=== PATIENT | female | born 1940 | race Caucasian/White ===

== ENCOUNTER 2020-08-23 06:21 | Outpatient (REF) | payer MEDICARE, OTHER, SELFPAY ==
[2020-08-23 11:12] LABS: MANUAL DIFF FLAG NO
[2020-08-23 11:26] LABS: Glucose Urine UA NEG (NEG); Leukocyte Esterase Urine NEG (NEG); Nitrite Urine NEG (NEG); Urine Blood TRACE (NEG); Urine Ketones NEG (NEG); Urine Protein TRACE MG/DL (NEG-TRACE)
[2020-08-23 11:27] LABS: Appearance Urine CLEAR; Color Urine YELLOW
[2020-08-23 11:31] LABS: Basophils Absolute Auto 0.1 X10*3/uL (0.0-0.2); Basophils Percent Auto 0.9 % (0-2); Eosinophils Absolute Auto 0.3 X10*3/uL (0.0-0.4); Eosinophils Percent Auto 4.4 % (0-4); Hemoglobin 13.7 g/dl (12.0-16.0); Imm Gran Abs Auto 0.02 X10*3/uL (0.00-0.03); Imm Gran Pct Auto 0.3 % (0.0-0.4); Lymphocytes Absolute Auto 1.7 X10*3/uL (1.2-4.9); Lymphocytes Percent Auto 24.8 % (20-40); Mean Corpuscular HGB Conc 32.6 g/dl (31.0-35.0); Mean Corpuscular Hemoglobin 31.5 pg (27.0-33.0); Mean Corpuscular Volume 96.6 fL (80-98); Mean Platelet Volume 11.1 fL (9.4-12.3); Monocytes Absolute Auto 0.9 X10*3/uL (0.1-1.2); Monocytes Percent Auto 13.3 % (2-11); Neutrophils Absolute Auto 3.8 X10*3/uL (2.0-8.3); Neutrophils Percent Auto 56.3 % (45-73); Platelet Count 265 X10*3/uL (160-400); Red Blood Count 4.35 X10*6/uL (4.20-5.50); White Blood Count 6.8 X10*3/uL (4.8-10.8)
[2020-08-23 11:39] LABS: RBC Urine 0-2 /HPF (0); Squamous Epithelial Cell Urine TRACE /LPF; WBC Urine 0 /HPF (0-4)
[2020-08-23 12:16] LABS: Alanine Aminotransferase 17 U/L (0-31); Albumin Level 4.3 g/dL (3.5-5.0); Alkaline Phosphatase 117 U/L (39-117); Anion Gap 13 (12-20); Aspartate Amino Transferase 25 U/L (5-31); Bilirubin Total 0.6 mg/dL (0.0-1.0); Blood Urea Nitrogen 21 mg/dL (9-16); Calcium 9.6 mg/dL (8.4-10.2); Carbon Dioxide 33 mmol/L (22-29); Chloride 99 mmol/L (96-108); Cholesterol 160 mg/dL; Estimated Glomerular Filt Rate 50; Glucose Fasting 100 mg/dL (60-99); HDL Cholesterol 59 mg/dL; LDL Cholesterol Calculated 86 mg/dl; Potassium 4.7 mmol/l (3.3-5.1); Sodium 140 mmol/L (135-145); Triglycerides 77 mg/dL
[2020-08-23 12:38] LABS: Thyroid Stimulating Hormone 1.94 mIU/mL (0.32-4.0); Vitamin D 25-OH Total 47.7 ng/mL (>30)
== END 2020-08-23 06:22 | disposition home or self-care (01) ==
LOC: HO.HMGCLDS 06:21
PROVIDERS: PCP Internal Medicine; Visit Provider Internal Medicine
DX: I10 Essential (primary) hypertension (principal); E78.00 Pure hypercholesterolemia, unspecified; M81.0 Age-related osteoporosis without current pathological fracture
CPT/HCPCS: 36415; 80053; 80061; 81001; 82306; 84443; 85025

== ENCOUNTER → 2020-09-01 09:17 | Outpatient (REF) | payer MEDICARE, OTHER, SELFPAY ==
--- NOTE | 2020-09-01 09:30 | CA_ITS ---
Transthoracic Echocardiogram Patient (Last, First, Middle): Farnaz Menezes M Gender: Female Date of : 1940 Age: 79 Procedure Date: 09/01/2020 Procedure Type: Transthoracic Echocardiogram Location: OP Height: 160.02 cm Weight: 56.7 kg BSA: 1.58 m2 Heart Rate: bpm BP: 130 / 60 mmHg Head Buyer Tobacco: ODILON Referring MD: Jose Moore MD Symptoms: I42.2 CMP Conclusions: - The left ventricular systolic function is hyperdynamic. The visually estimated ejection fraction is >70%. - LVOT gradient noted-34 mm Hg; mid cavitary gradient- 36 mm Hg; no major changes with Valsalva. - There is mild calcification of the aortic valve. - There is mild anterior and posterior mitral leaflet thickening. There is moderate mitral annular calcification. Findings Left Ventricle Normal left ventricular cavity size. There is normal left ventricular wall thickness. The left ventricular systolic function is hyperdynamic. The visually estimated ejection fraction is >70%. E/E prime ratio is between 8 and 15 consistent with indeterminate filling pressures. Evidence suggests grade I (mild) diastolic dysfunction. LVOT gradient noted-34 mm Hg; mid cavitary gradient- 36 mm Hg; no major changes with Valsalva. Right Ventricle Normal right ventricular cavity size and systolic function. Atria The left atrium is normal in size. The right atrium is normal in size. Aortic Valve There is a normal trileaflet aortic valve. There is mild calcification of the aortic valve. There is no aortic valve stenosis. There is no aortic valve regurgitation. Mitral Valve There is mild anterior and posterior mitral leaflet thickening. There is moderate mitral annular calcification. There is trace mitral valve regurgitation. There is no mitral valve stenosis. Pulmonic Valve The pulmonic valve was not well visualized. Tricuspid Valve Normal tricuspid valve structure. There is mild tricuspid valve regurgitation. The pulmonary artery systolic pressure is normal. Great Vessels The aortic annulus, sinuses of valsalva, and asc aorta are normal in size. Venous The inferior vena cava is normal in size and collapses greater than 50% with inspiration. Pericardium/Pleural There is no evidence of pericardial effusion. Prior Study Comparison No prior study available for comparison. Measurements 2D Linear Measurements IVSd: 0.95 0.6-0.9/0.6-1.0 cm LVIDd: 3.03 3.9-5.3/4.2-5.9 cm LVIDs: 1.94 2.0-3.6 cm LVPWd: 0.65 0.7-1.1 cm LA Diam: 2.50 2.7-3.8/3.0-4.0 cm LV Mass: 73.80 67-162/88-224 g LVOT Diam: 1.80 3.0+(-)1.3 cm Mitral Valve MV VTI: 0.22 MV Pk Jose: 1.55 MV Mn Jose: 0.92 MV Pk Grad: 9.61 MV Mn Grad: 3.83 MV Pk E: 0.71 MV PK A: 1.48 MV Decel Time: 130.20 E/A: 0.48 E'Lateral: 0.06 E'Medial: 0.06 Decel [place]: 5.42 Aortic Valve AoV Pk Jose: 2.10 AoV Pk Grad: 17.57 LVOT LVOT Pk Jose: 1.97 LVOT Mn Jose: 1.35 LVOT VTI: 0.39 LVOT Pk Grad: 15.54 LVOT Mn Grad: 8.42 LVOT Diam: 1.80 LVOT Area: 2.56 Diastolic Function MV Pk E: 0.71 MV Pk A: 1.48 E/A: 0.48 E'Medial: 0.06 E' Laterial: 0.06 Tricuspid Valve TR Pk Jose: 2.75 TR Pk Grad: 30.24 Great Vessels Aorta Ao Asc: 2.32 2.1-3.4 cm Updated in Other Vendor System with Status of Final Chon Stratton MD electronically signed on 09/03/2020 11:11:58 AM with status of Final
== END ==
LOC: HO.CARD 09:17
PROVIDERS: PCP Internal Medicine; Referring Provider Internal Medicine Interventional Cardiology; Visit Provider Internal Medicine
DX: I42.2 Other hypertrophic cardiomyopathy (principal); I42.3 Endomyocardial (eosinophilic) disease
CPT/HCPCS: 93306

== ENCOUNTER 2021-04-23 06:04 | Outpatient (REF) | payer MEDICARE, OTHER, SELFPAY ==
[2021-04-23 08:13] LABS: Alanine Aminotransferase 24 U/L (0-31); Albumin Level 4.2 g/dL (3.5-5.0); Alkaline Phosphatase 123 U/L (39-117); Anion Gap 13 (12-20); Aspartate Amino Transferase 29 U/L (5-31); Bilirubin Total 0.5 mg/dL (0.0-1.0); Blood Urea Nitrogen 27 mg/dL (9-16); Calcium 9.7 mg/dL (8.4-10.2); Carbon Dioxide 30 mmol/L (22-29); Chloride 102 mmol/L (96-108); Cholesterol 154 mg/dL; Estimated Glomerular Filt Rate 54; Gamma Glutamyl Transpeptidase 49 U/L (7-33); Glucose Random 93 mg/dL (60-115); HDL Cholesterol 57 mg/dL; LDL Cholesterol Calculated 80 mg/dl; Potassium 4.8 mmol/L (3.3-5.1); Sodium 140 mmol/L (135-145); Total Protein 6.8 g/dL (6.5-8.0); Triglycerides 88 mg/dL
== END 2021-04-23 06:05 | disposition home or self-care (01) ==
LOC: HO.LAB 06:04
PROVIDERS: PCP Internal Medicine; Visit Provider Internal Medicine
DX: I10 Essential (primary) hypertension (principal); E78.00 Pure hypercholesterolemia, unspecified; R74.8 Abnormal levels of other serum enzymes
CPT/HCPCS: 36415; 80053; 80061; 82977

== ENCOUNTER 2021-06-26 09:07 | Outpatient (REF) | payer MEDICARE, OTHER, SELFPAY ==
--- NOTE | ~2021-06-26 | MM_ITS ---
EXAMINATION: MM SCREENING DIGITAL BREAST TOMOSYNTHESIS, BILATERAL CLINICAL INFORMATION: Screening. Asymptomatic. The lifetime risk of breast cancer based on the Tyrer-Cuzick Model is 2%. COMPARISON: Mammography: 06/20/2020, 06/15/2019, 05/26/2018 TECHNIQUE: Digital breast tomosynthesis is performed in both the craniocaudal and mediolateral oblique views along with computer-aided detection (CAD). Synthesized 2D images are generated from the tomosynthesis. FINDINGS: There are scattered areas of fibroglandular density (ACR BI-RADS breast composition Category b). Fibroglandular parenchymal pattern is similar to prior studies. No significant mass or architectural abnormality or significant change from prior studies. Scattered grouped calcifications central and upper outer left breast are similar to prior studies. The axilla and skin contours are unremarkable. MM/MM tomosynthesis screening BI IMPRESSION: No significant changes from prior studies. ASSESSMENT: BI-RADS 2: Benign RECOMMENDATION: Routine annual mammography screening. This patient's information was entered into a reminder system with a target due date for their next mammogram.
== END 2021-06-26 09:08 | disposition home or self-care (01) ==
LOC: HO.MAMMO 09:07
PROVIDERS: Visit Provider Internal Medicine
DX: Z12.31 Encounter for screening mammogram for malignant neoplasm of breast (principal)
CPT/HCPCS: 77063; 77067

== ENCOUNTER 2021-08-22 06:30 | Outpatient (REF) | payer MEDICARE, OTHER, SELFPAY ==
[2021-08-22 06:36] LABS: MANUAL DIFF FLAG NO
[2021-08-22 07:32] LABS: Basophils Absolute Auto 0.1 X10*3/uL (0.0-0.2); Basophils Percent Auto 0.6 % (0-2); Eosinophils Absolute Auto 0.3 X10*3/uL (0.0-0.4); Eosinophils Percent Auto 4.2 % (0-4); Hematocrit 41.8 % (37-47); Hemoglobin 13.6 g/dl (12.0-16.0); Imm Gran Abs Auto 0.03 X10*3/uL (0.00-0.03); Imm Gran Pct Auto 0.4 % (0.0-0.4); Lymphocytes Absolute Auto 1.4 X10*3/uL (1.2-4.9); Lymphocytes Percent Auto 18.6 % (20-40); Mean Corpuscular HGB Conc 32.5 g/dl (31.0-35.0); Mean Corpuscular Hemoglobin 31.1 pg (27.0-33.0); Mean Corpuscular Volume 95.7 fL (80-98); Mean Platelet Volume 10.9 fL (9.4-12.3); Monocytes Absolute Auto 0.9 X10*3/uL (0.1-1.2); Monocytes Percent Auto 11.6 % (2-11); Neutrophils Percent Auto 64.6 % (45-73); Platelet Count 296 X10*3/uL (160-400); Red Blood Count 4.37 X10*6/uL (4.20-5.50); Red Cell Distribution Width 12.8 % (11.0-16.0); White Blood Count 7.7 X10*3/uL (4.8-10.8)
[2021-08-22 07:49] LABS: Alanine Aminotransferase 18 U/L (0-31); Albumin Level 4.4 g/dL (3.5-5.0); Alkaline Phosphatase 136 U/L (39-117); Anion Gap 10 (12-20); Aspartate Amino Transferase 25 U/L (5-31); Bilirubin Total 0.7 mg/dL (0.0-1.0); Blood Urea Nitrogen 21 mg/dL (9-16); Calcium 9.9 mg/dL (8.4-10.2); Carbon Dioxide 29 mmol/L (22-29); Chloride 102 mmol/L (96-108); Cholesterol 165 mg/dL; Estimated Glomerular Filt Rate 50; Glucose Random 104 mg/dL (60-115); HDL Cholesterol 49 mg/dL; LDL Cholesterol Calculated 92 mg/dl; Potassium 4.1 mmol/L (3.3-5.1); Sodium 137 mmol/L (135-145); Total Protein 7.3 g/dL (6.5-8.0); Triglycerides 124 mg/dL
[2021-08-22 08:07] LABS: Appearance Urine CLEAR; Color Urine YELLOW; Glucose Urine UA NEG (NEG); Leukocyte Esterase Urine NEG (NEG); Nitrite Urine NEG (NEG); PH 6.5 (5.0-8.0); Urine Blood NEG (NEG); Urine Ketones NEG (NEG); Urine Protein NEG (NEG-TRACE)
== END 2021-08-22 06:31 | disposition home or self-care (01) ==
LOC: HO.LAB 06:30
PROVIDERS: PCP Internal Medicine; Visit Provider Internal Medicine
DX: I10 Essential (primary) hypertension (principal); E78.00 Pure hypercholesterolemia, unspecified
CPT/HCPCS: 36415; 80053; 80061; 81003; 85025

== ENCOUNTER 2021-10-03 10:13 | Outpatient (REF) | payer MEDICARE, OTHER, SELFPAY ==
--- NOTE | ~2021-10-03 | MM_ITS ---
EXAMINATION: BONE DENSITOMETRY CLINICAL INDICATION: Osteoporosis. COMPARISON: Previous BD dated 10/01/2019 and baseline BD dated 09/12/2005. TECHNIQUE: Using a HIGH MOBILITY DXA System (software version: 13.1) manufactured by [employer] dual-energy x-ray absorptiometry was performed of the lumbar spine and left hip. The images are of good technical quality. Summary results are attached. FINDINGS: AP SPINE L1-L4: Current: BMD 0.814 g/cm2, Z-score -0.9, T-score -3.0, osteoporosis, 9.7% increase from previous, 2.4% increase from baseline (<5% change is not significant). Prior: BMD 0.742 g/cm2. Baseline: BMD 0.795 g/cm2. LEFT FEMUR, NECK: Current: BMD 0.606 g/cm2, Z-score -0.8, T-score -3.1, osteoporosis. Prior: BMD 0.591 g/cm2. Baseline: BMD 0.688 g/cm2. LEFT FEMUR, TOTAL: Current: BMD 0.598 g/cm2, Z-score -1.1, T-score -3.3, osteoporosis, 1.2% decrease from previous, 14.1% decrease from baseline (<5% change is not significant). Prior: BMD 0.605 g/cm2. Baseline: BMD 0.696 g/cm2. IDENTIFIED RISK FACTORS: Menopause, osteoporosis, tobacco use (current smoker), Thiazide. HISTORY OF FRACTURE: None listed. MEDICATIONS: Calcium, vitamin D, bisphosphonate. MM/XR DEXA axial skeleton IMPRESSION: 1. DIAGNOSIS: Osteoporosis based on the lowest T-score value of -3.3 in the total femur applying World Health Organization criteria. 2. 10-YEAR FRACTURE RISK PREDICTION, FRAX: According to the guidelines, FRAX calculation should only be performed on patients in the osteopenia bone density category. 3. Treatment Recommendations: NOF guidelines recommend consideration for treatment in postmenopausal women and men age 50 and older presenting with the following: -A hip or vertebral (clinical or morphometric) fracture. -T-score less than or equal to -2.5 at the femoral neck or spine after appropriate evaluation to exclude secondary causes. -Low bone mass at the hip or spine and a 10-year fracture probability by FRAX of greater than or equal to 3% for hip fracture or greater than or equal to 20% for major osteoporotic fracture based on the [place] adapted WHO algorithm. 4. Other Recommendations: All treatment decisions require clinical judgment and consideration of individual patient factors, including patient preferences, comorbidities, previous drug use, risk factors not captured in the FRAX model (e.g. frailty, falls, vitamin D deficiency, increased bone turnover, interval significant decline in bone density) and possible under or overestimation of fracture risk by FRAX. Additional medical evaluation for secondary cause of low bone mineral density may be appropriate. FUTURE SCAN RECOMMENDATION: People with diagnosed cases of osteoporosis or at high risk for fracture should have regular bone mineral density tests. For patients eligible for Medicare, routine testing is allowed once every 2 years. The testing frequency can be increased to one year for patients who have rapidly progressing disease, those who are receiving or discontinuing medical therapy to restore bone mass, or have additional risk factors.
== END 2021-10-03 10:14 | disposition home or self-care (01) ==
LOC: HO.MAMMO 10:13
PROVIDERS: PCP Internal Medicine; Visit Provider Internal Medicine Endocrinology, Diabetes & Metabolism
DX: M81.0 Age-related osteoporosis without current pathological fracture (principal); F17.200 Nicotine dependence, unspecified, uncomplicated; Z79.899 Other long term (current) drug therapy; Z78.0 Asymptomatic menopausal state
CPT/HCPCS: 77080

== ENCOUNTER 2021-10-27 10:12 | Emergency (ER) | payer MEDICARE, OTHER, SELFPAY ==
[2021-10-27 10:18] VITALS: BP 192/89; PULSE 79; RESP 19; TEMP 36.6; O2SAT 99; BMI 21.4
--- NOTE | 2021-10-27 11:47 | ED.LOWEXIN ---
HPI - Extremity Injury (Lower) General Chief Complaint: Extremity Injury, Lower Stated Complaint: leg pain Time Seen by Provider: 10/27/21 11:47 Source: patient Mode of arrival: ambulatory History of Present Illness HPI Narrative: 81-year-old female with a past medical history of hyperlipidemia, hypertension, cardiomyopathy presenting to the ED complaining of right buttock pain radiating down right lower extremity x a few days. Reports her sciatic nerve is acting up, admits to similar symptoms in the past. Took Motrin at home with minimal relief. Denies known injury/trauma or fall. Denies numbness, tingling, weakness, urinary incontinence/retention. Related Data Previous Rx's Medication Instructions Recorded acetaminophen 500 mg tablet 500 mg PO Q6H PRN #20 tab 10/27/21 (Tylenol Extra Strength) cyclobenzaprine 5 mg tablet 5 mg PO Q8H PRN 5 Days #14 tab 10/27/21 lidocaine 5 % topical patch 1 patch TOPICAL DAILY PRN #30 ea 10/27/21 (Lidoderm) MDD remove after 12 hours naproxen 500 mg tablet 500 mg PO BID PRN 10 Days #20 tab 10/27/21 Allergies Allergy/AdvReac Type Severity Reaction Status Date / Time No Known Allergies Allergy Unverified 07/27/20 15:10 [No Known Allergies*] Review of Systems Review of Systems: Constitutional: No Fever, No Chills ENT/Mouth: No Ear Pain, No Nasal Congestion, No sore throat, No Rhinorrhea, No Swallowing Difficulty Cardiovascular: No Chest Pain, No SOB Respiratory: No Cough Gastrointestinal: No Nausea, No Vomiting, No Diarrhea, No Constipation, No Abdominal pain Genitourinary:, No Dysuria, No Urinary Incontinence/retention, No Urgency, No Flank Pain Musculoskeletal: +back pain, No Myalgias, No Joint Swelling Skin: No Skin Lesions, No rash Neuro: No Weakness, No Numbness, No Paresthesias Yes all other systems are reviewed and are negative Neurologic: Denies Sensory deficit (Neuro) [facility] Past Medical History Attestation statement: The following information was validated with the patient. Medical History Cardiomyopathy High cholesterol HTN (hypertension) Social History Social History Advance Directives: No Advance Directives Information Provided: Yes Physical Exam Vital Signs: Vital Signs: Last Vital Signs Temp 98 F 10/27/21 10:18 Pulse 79 10/27/21 10:18 Resp 19 10/27/21 10:18 BP 192/89 H 10/27/21 10:18 Pulse Ox 99 10/27/21 10:18 BMI result Body Mass Index 21.4 Const: General: cooperative, healthy appearing and no acute distress Orientation/consciousness: patient oriented x3 Limitations: no limitations HENMT: Head: Yes normal to inspection Ears: hearing grossly normal bilaterally General nose exam: Normal external nose present Face and sinus: Yes normal facial exam Eyes: General: appearance normal, both eyes and all related structures EOM: EOMs intact bilaterally Neck: Other: No midline cervical spinous tenderness Neck: Yes normal visual inspection Resp: Effort & Inspection: normal respiratory effort and no respiratory distress Cardio: Rate: regular rate Peripheral pulses: dorsalis pedis present GI: Inspection: Yes normal to inspection Palpation (GI): Soft to palpation and nontender Back/Spine/Pelvis: Other: No midline thoracic or lumbar spine tenderness/step-off or deformity. + right buttock tenderness to palpation Skin: Rashes: no rashes Wounds: no wounds Neuro: Other: strength intact throughout. No saddle anesthesia. Ambulating with steady gait. General: patient oriented x3, gait normal, tone normal and moves all extremities Gait exam (Neuro): Normal gait present Motor exam (neuro): 5/5 motor strength present throughout Sensory Exam: No Sensory deficit (Neuro) Extrem: General: Yes normal to inspection MDM - Extremity Injury (Lower) MDM Narrative Medical decision making narrative: 81-year-old female with a past medical history of hyperlipidemia, hypertension, cardiomyopathy presenting to the ED complaining of right buttock pain radiating down right lower extremity x a few days. On exam vital signs stable, NAD/well-appearing, physical exam as above, no midline spinous tenderness, no red flag symptoms. Ambulating with steady gait. No saddle anesthesia. Concern for sciatic nerve pain/MSK muscle spasming. Low concern for cauda equina, cord compression or epidural abscess Medical Records Attestation: I reviewed the patient's medical records. Lab Data Attestation: I reviewed the patient's lab results. Discharge Plan Discharge Clinical Impression: Sciatica Qualifiers: Laterality: right Qualified Code(s): M54.31 - Sciatica, right side Patient Disposition: Home, Self-Care Instructions: Sciatica (ED) Additional Instructions: Your pain is likely musculoskeletal Flexeril is a muscle relaxer, take at night as it makes you drowsy, do not drive, drink alcohol, or operate machinery while taking it Naproxen as an anti-inflammatory / pain medication, take with food Lidoderm patches are numbing patches, apply to painful area In addition take Tylenol at home If symptoms persist or worsen, pain becomes unbearable, you developed urinary retention or incontinence, or weakness return to the ED Prescriptions: New acetaminophen [Tylenol Extra Strength] 500 mg tablet 500 mg PO Q6H PRN (Reason: pain or fever) Qty: 20 RF: 0 lidocaine [Lidoderm] 5 % adhesive patch,medicated 1 patch topical DAILY MDD remove after 12 hours PRN (Reason: pain) Qty: 30 RF: 0 naproxen 500 mg tablet 500 mg PO BID PRN (Reason: pain) 10 Days Qty: 20 RF: 0 cyclobenzaprine 5 mg tablet 5 mg PO Q8H PRN (Reason: pain (scale score 7-10)) 5 Days Qty: 14 RF: 0 Referrals: Jose Moore MD [Primary Care Provider] - 1 week (as needed) Interventions: ED Discharge Assessment Last Done: 10/27/21 11:58
== END 2021-10-27 11:59 | disposition home or self-care (01) ==
PROVIDERS: Emergency Provider Emergency Medicine; PCP Internal Medicine
DX: M54.31 Sciatica, right side (principal); I10 Essential (primary) hypertension
CPT/HCPCS: 99283

== ENCOUNTER 2022-03-18 06:03 | Outpatient (REF) | payer MEDICARE, OTHER, SELFPAY ==
[2022-03-18 06:13] LABS: MANUAL DIFF FLAG NO
[2022-03-18 07:18] LABS: Basophils Absolute Auto 0.1 X10*3/uL (0.0-0.2); Basophils Percent Auto 0.6 % (0-2); Eosinophils Absolute Auto 0.4 X10*3/uL (0.0-0.4); Hematocrit 44.5 % (37.0-47.0); Hemoglobin 14.2 g/dl (12.0-16.0); Imm Gran Abs Auto 0.02 X10*3/uL (0.00-0.03); Imm Gran Pct Auto 0.3 % (0.0-0.4); Lymphocytes Absolute Auto 1.9 X10*3/uL (1.2-4.9); Lymphocytes Percent Auto 24.3 % (20-40); Mean Corpuscular HGB Conc 31.9 g/dl (31.0-35.0); Mean Corpuscular Hemoglobin 30.7 pg (27.0-33.0); Mean Corpuscular Volume 96.3 fL (80.0-98.0); Mean Platelet Volume 10.8 fL (9.4-12.3); Monocytes Percent Auto 12.7 % (2-11); Neutrophils Absolute Auto 4.5 x10*3/uL (2.0-8.3); Neutrophils Percent Auto 57.1 % (45-73); Platelet Count 271 X10*3/uL (160-400); Red Blood Count 4.62 X10*6/uL (4.20-5.50); Red Cell Distribution Width 12.3 % (11.0-16.0); White Blood Count 7.8 X10*3/uL (4.8-10.8)
[2022-03-18 07:51] LABS: Alanine Aminotransferase 16 U/L (0-31); Albumin Level 4.3 g/dL (3.5-5.0); Alkaline Phosphatase 123 U/L (39-117); Anion Gap 15 (12-20); Aspartate Amino Transferase 24 U/L (5-31); Bilirubin Total 0.5 mg/dL (0.0-1.0); Blood Urea Nitrogen 26 mg/dL (9-16); Calcium 10.3 mg/dL (8.4-10.2); Carbon Dioxide 29 mmol/L (22-29); Chloride 102 mmol/L (96-108); Cholesterol 177 mg/dL; Estimated Glomerular Filt Rate 48; Glucose Random 107 mg/dL (60-115); HDL Cholesterol 64 mg/dL; LDL Cholesterol Calculated 96 mg/dl; Potassium 4.6 mmol/L (3.3-5.1); Sodium 141 mmol/L (135-145); Total Protein 7.2 g/dL (6.5-8.0); Triglycerides 89 mg/dL
[2022-03-18 08:00] LABS: Thyroid Stimulating Hormone 2.17 uIU/mL (0.32-4.0)
== END 2022-03-18 06:04 | disposition home or self-care (01) ==
LOC: HO.LAB 06:03
PROVIDERS: PCP Internal Medicine; Visit Provider Internal Medicine
DX: E78.00 Pure hypercholesterolemia, unspecified (principal); I10 Essential (primary) hypertension
CPT/HCPCS: 36415; 80053; 80061; 84443; 85025

== ENCOUNTER 2022-04-22 14:43 | Outpatient (REF) | payer MEDICARE, OTHER, SELFPAY ==
[2022-04-22 15:11] LABS: COVID-19 Test Negative (Negative); IDNOW Serial# 08D9AD1C
== END 2022-04-22 14:44 | disposition home or self-care (01) ==
LOC: HO.LAB 14:43
PROVIDERS: Visit Provider Internal Medicine
DX: Z20.822 Contact with and (suspected) exposure to COVID-19 (principal)
CPT/HCPCS: 87635; C9803

== ENCOUNTER 2022-06-27 09:35 | Outpatient (REF) | payer MEDICARE, OTHER, SELFPAY ==
--- NOTE | ~2022-06-27 | MM_ITS ---
EXAMINATION: MM SCREENING DIGITAL BREAST TOMOSYNTHESIS, BILATERAL CLINICAL INFORMATION: Screening. Asymptomatic. The lifetime risk of breast cancer based on the Tyrer-Cuzick Model is 2%. COMPARISON: Mammography: 06/26/2021, 06/20/2020, 06/15/2019 TECHNIQUE: Digital breast tomosynthesis is performed in both the craniocaudal and mediolateral oblique views along with computer-aided detection (CAD). Synthesized 2D images are generated from the tomosynthesis. FINDINGS: There are scattered areas of fibroglandular density (ACR BI-RADS breast composition Category b). There are no significant masses, abnormal calcifications, or other abnormalities. Parenchymal pattern is similar to prior studies. Again, there are scattered coarse grouped calcifications central and upper outer left breast, likely fibroadenomatous change. The axilla and skin contours are unremarkable. No significant changes. MM/MM tomosynthesis screening BI IMPRESSION: No mammographic evidence of malignancy. ASSESSMENT: BI-RADS 2: Benign RECOMMENDATION: Routine annual mammography screening. This patient's information was entered into a reminder system with a target due date for their next mammogram.
== END 2022-06-27 09:36 | disposition home or self-care (01) ==
LOC: HO.MAMMO 09:35
PROVIDERS: PCP Internal Medicine; Visit Provider Internal Medicine
DX: Z12.31 Encounter for screening mammogram for malignant neoplasm of breast (principal)
CPT/HCPCS: 77063; 77067

== ENCOUNTER 2022-09-04 06:51 | Outpatient (REF) | payer MEDICARE, OTHER, SELFPAY ==
[2022-09-04 07:49] LABS: Estimated Average Glucose 114 mg/dL; Hemoglobin A1c % 5.6 %
[2022-09-04 08:12] LABS: Alanine Aminotransferase 12 U/L (0-31); Albumin Level 4.2 g/dL (3.5-5.0); Alkaline Phosphatase 123 U/L (39-117); Anion Gap 16 (12-20); Aspartate Amino Transferase 20 U/L (5-31); Bilirubin Total 0.5 mg/dL (0.0-1.0); Blood Urea Nitrogen 25 mg/dL (9-16); Carbon Dioxide 28 mmol/L (22-29); Chloride 102 mmol/L (96-108); Estimated Glomerular Filt Rate 49; Glucose Random 102 mg/dL (60-115); Magnesium 2.3 mg/dL (1.6-2.6); Potassium 4.6 mmol/L (3.3-5.1); Sodium 141 mmol/L (135-145); Total Protein 7.1 g/dL (6.5-8.0)
== END 2022-09-04 06:52 | disposition home or self-care (01) ==
LOC: HO.LAB 06:51
PROVIDERS: PCP Internal Medicine; Visit Provider Internal Medicine
DX: I10 Essential (primary) hypertension (principal); M81.0 Age-related osteoporosis without current pathological fracture; R73.01 Impaired fasting glucose
CPT/HCPCS: 36415; 80053; 82306; 83036; 83735

== ENCOUNTER 2023-03-05 06:19 | Outpatient (REF) | payer MEDICARE, OTHER, SELFPAY ==
[2023-03-05 06:33] LABS: MANUAL DIFF FLAG NO
[2023-03-05 07:19] LABS: Basophils Absolute Auto 0.1 X10*3/uL (0.0-0.2); Basophils Percent Auto 0.8 % (0-2); Eosinophils Absolute Auto 0.3 X10*3/uL (0.0-0.4); Eosinophils Percent Auto 4.4 % (0-4); Hematocrit 43.8 % (37.0-47.0); Imm Gran Abs Auto 0.02 X10*3/uL (0.00-0.03); Imm Gran Pct Auto 0.3 % (0.0-0.4); Lymphocytes Absolute Auto 2.1 X10*3/uL (1.2-4.9); Lymphocytes Percent Auto 27.6 % (20-40); Mean Corpuscular Hemoglobin 30.8 pg (27.0-33.0); Mean Corpuscular Volume 96.5 fL (80.0-98.0); Mean Platelet Volume 11.1 fL (9.4-12.3); Monocytes Absolute Auto 0.9 X10*3/uL (0.1-1.2); Monocytes Percent Auto 11.8 % (2-11); Neutrophils Absolute Auto 4.2 x10*3/uL (2.0-8.3); Neutrophils Percent Auto 55.1 % (45-73); Platelet Count 258 X10*3/uL (160-400); Red Blood Count 4.54 X10*6/uL (4.20-5.50); Red Cell Distribution Width 12.8 % (11.0-16.0); White Blood Count 7.7 X10*3/uL (4.8-10.8)
[2023-03-05 07:48] LABS: Alanine Aminotransferase 19 U/L (0-31); Albumin Level 4.3 g/dL (3.5-5.0); Alkaline Phosphatase 121 U/L (39-117); Anion Gap 14 (12-20); Aspartate Amino Transferase 24 U/L (5-31); Bilirubin Total 0.5 mg/dL (0.0-1.0); Blood Urea Nitrogen 26 mg/dL (9-16); Calcium 10.1 mg/dL (8.4-10.2); Carbon Dioxide 29 mmol/L (22-29); Chloride 103 mmol/L (96-108); Cholesterol 170 mg/dL; Estimated Glomerular Filt Rate 40; Glucose Random 105 mg/dL (60-115); HDL Cholesterol 55 mg/dL; LDL Cholesterol Calculated 98 mg/dl; Potassium 4.7 mmol/L (3.3-5.1); Sodium 141 mmol/L (135-145); Total Protein 6.9 g/dL (6.5-8.0); Triglycerides 87 mg/dL
[2023-03-05 08:04] LABS: Thyroid Stimulating Hormone 1.81 uIU/mL (0.32-4.0); Vitamin D 25-OH Total 53.2 ng/mL (>30)
[2023-03-05 08:33] LABS: Appearance Urine Clear; Color Urine Yellow; Glucose Urine UA Negative (Negative); Leukocyte Esterase Urine Small (1+) (Negative); Nitrite Urine Negative (Negative); PH 6.5 (5.0-9.0); UMIC TRIGGER UA YES; Urine Blood Negative (Negative); Urine Ketones Negative (Negative); Urine Protein Negative (Neg-Trace)
[2023-03-05 08:38] LABS: Bacteria Urine None Seen (None Seen); Hyaline Casts Urine 0-2 /LPF (0-2); RBC Urine 0-2 /HPF (0-2); Squamous Epithelial Cell Urine 0-2 /HPF (0-2)
== END 2023-03-05 06:20 | disposition home or self-care (01) ==
LOC: HO.LAB 06:19
PROVIDERS: PCP Internal Medicine; Visit Provider Internal Medicine
DX: I10 Essential (primary) hypertension (principal); E78.00 Pure hypercholesterolemia, unspecified; M81.0 Age-related osteoporosis without current pathological fracture
CPT/HCPCS: 36415; 80053; 80061; 81001; 82306; 84443; 85025

== ENCOUNTER 2023-04-16 06:01 | Outpatient (REF) | payer MEDICARE, OTHER, SELFPAY ==
[2023-04-16 07:19] LABS: Anion Gap 12 (12-20); Blood Urea Nitrogen 22 mg/dL (9-16); Calcium 10.1 mg/dL (8.4-10.2); Carbon Dioxide 30 mmol/L (22-29); Chloride 104 mmol/L (96-108); Estimated Glomerular Filt Rate 51; Glucose Random 107 mg/dL (60-115); Potassium 4.1 mmol/L (3.3-5.1); Sodium 142 mmol/L (135-145)
== END 2023-04-16 06:02 | disposition home or self-care (01) ==
LOC: HO.LAB 06:01
PROVIDERS: PCP Internal Medicine; Visit Provider Internal Medicine
DX: I10 Essential (primary) hypertension (principal)
CPT/HCPCS: 36415; 80048

== ENCOUNTER 2023-09-09 06:38 | Outpatient (REF) | payer MEDICARE, OTHER, SELFPAY ==
[2023-09-09 06:54] LABS: MANUAL DIFF FLAG NO
[2023-09-09 07:31] LABS: Basophils Absolute Auto 0.1 X10*3/uL (0.0-0.2); Basophils Percent Auto 0.9 % (0-2); Eosinophils Absolute Auto 0.4 X10*3/uL (0.0-0.4); Eosinophils Percent Auto 5.3 % (0-4); Hematocrit 42.3 % (37.0-47.0); Hemoglobin 13.9 g/dl (12.0-16.0); Imm Gran Abs Auto 0.02 X10*3/uL (0.00-0.03); Imm Gran Pct Auto 0.3 % (0.0-0.4); Lymphocytes Absolute Auto 1.7 X10*3/uL (1.2-4.9); Lymphocytes Percent Auto 24.4 % (20-40); Mean Corpuscular HGB Conc 32.9 g/dl (31.0-35.0); Mean Corpuscular Volume 94.4 fL (80.0-98.0); Mean Platelet Volume 10.6 fL (9.4-12.3); Monocytes Absolute Auto 0.8 X10*3/uL (0.1-1.2); Monocytes Percent Auto 11.8 % (2-11); Neutrophils Absolute Auto 3.9 x10*3/uL (2.0-8.3); Neutrophils Percent Auto 57.3 % (45-73); Platelet Count 249 X10*3/uL (160-400); Red Blood Count 4.48 X10*6/uL (4.20-5.50); Red Cell Distribution Width 13.1 % (11.0-16.0); White Blood Count 6.9 X10*3/uL (4.8-10.8)
[2023-09-09 07:47] LABS: Estimated Average Glucose 111 mg/dL; Hemoglobin A1c % 5.5 % (<6.0)
[2023-09-09 08:17] LABS: Alanine Aminotransferase 15 U/L (0-31); Albumin Level 4.3 g/dL (3.5-5.0); Alkaline Phosphatase 105 U/L (39-117); Anion Gap 15 (12-20); Aspartate Amino Transferase 24 U/L (5-31); Bilirubin Total 0.6 mg/dL (0.0-1.0); Blood Urea Nitrogen 26 mg/dL (9-16); Calcium 10.4 mg/dL (8.4-10.2); Carbon Dioxide 28 mmol/L (22-29); Chloride 103 mmol/L (96-108); Estimated Glomerular Filt Rate 51; Glucose Random 100 mg/dL (60-115); Potassium 4.4 mmol/L (3.3-5.1); Sodium 142 mmol/L (135-145); Total Protein 7.4 g/dL (6.5-8.0)
[2023-09-09 08:23] LABS: Vitamin D 25-OH Total 53.7 ng/mL (>30)
== END 2023-09-09 06:39 | disposition home or self-care (01) ==
LOC: HO.LAB 06:38
PROVIDERS: PCP Internal Medicine; Visit Provider Internal Medicine
DX: M81.0 Age-related osteoporosis without current pathological fracture (principal); I10 Essential (primary) hypertension; R73.01 Impaired fasting glucose
CPT/HCPCS: 36415; 80053; 82306; 83036; 83735; 85025

== ENCOUNTER 2023-10-09 09:33 | Outpatient (REF) | payer MEDICARE, OTHER, SELFPAY ==
--- NOTE | ~2023-10-09 | MM_ITS ---
EXAMINATION: BONE DENSITOMETRY CLINICAL INDICATION: Osteoporosis. COMPARISON: Previous BD dated 10/03/2021 and baseline BD dated 09/12/2005. TECHNIQUE: Using a [employer] DXA System (software version: 13.1) manufactured by [employer], dual-energy x-ray absorptiometry was performed of the lumbar spine and left hip. The images are of good technical quality. Summary results are attached. FINDINGS: LEFT FEMUR, NECK: Current: BMD 0.660 g/cm2, Z-score -0.4, T-score -2.7, osteoporosis. Prior: BMD 0.606 g/cm2. Baseline: BMD 0.688 g/cm2. LEFT FEMUR, TOTAL: Current: BMD 0.653 g/cm2, Z-score -0.6, T-score -2.8, osteoporosis, 9.2% increase from previous, 6.2% decrease from baseline (<5% change is not significant). Prior: BMD 0.598 g/cm2. Baseline: BMD 0.696 g/cm2. AP SPINE L1-L4: Current: BMD 0.810 g/cm2, Z-score -1.0, T-score -3.1, osteoporosis, 0.5% decrease from previous, 1.9% increase from baseline (<5% change is not significant). Prior: BMD 0.814 g/cm2. Baseline: BMD 0.795 g/cm2. IDENTIFIED RISK FACTORS: Menopause, osteoporosis, thiazide, tobacco use (current smoker). HISTORY OF FRACTURE: None listed. MEDICATIONS: Calcium, vitamin D, bisphosphonate. MM/XR DEXA axial skeleton IMPRESSION: 1. DIAGNOSIS: Osteoporosis based on the lowest T-score value of -3.1 in the lumbar spine applying World Health Organization criteria. 2. 10-YEAR FRACTURE RISK PREDICTION, FRAX: According to the guidelines, FRAX calculation should only be performed on patients in the osteopenia bone density category. Therefore, FRAX was not performed on this patient. 3. Treatment Recommendations: NOF guidelines recommend consideration for treatment in postmenopausal women and men age 50 and older presenting with the following: -A hip or vertebral (clinical or morphometric) fracture. -T-score less than or equal to -2.5 at the femoral neck or spine after appropriate evaluation to exclude secondary causes. -Low bone mass at the hip or spine and a 10-year fracture probability by FRAX of greater than or equal to 3% for hip fracture or greater than or equal to 20% for major osteoporotic fracture based on the [place] adapted WHO algorithm. 4. Other Recommendations: All treatment decisions require clinical judgment and consideration of individual patient factors, including patient preferences, comorbidities, previous drug use, risk factors not captured in the FRAX model (e.g. frailty, falls, vitamin D deficiency, increased bone turnover, interval significant decline in bone density) and possible under or overestimation of fracture risk by FRAX. Additional medical evaluation for secondary cause of low bone mineral density may be appropriate. FUTURE SCAN RECOMMENDATION: People with diagnosed cases of osteoporosis or at high risk for fracture should have regular bone mineral density tests. For patients eligible for Medicare, routine testing is allowed once every 2 years. The testing frequency can be increased to one year for patients who have rapidly progressing disease, those who are receiving or discontinuing medical therapy to restore bone mass, or have additional risk factors.
== END 2023-10-09 09:34 | disposition home or self-care (01) ==
LOC: HO.MAMMO 09:33
PROVIDERS: PCP Internal Medicine; Visit Provider Obstetrics & Gynecology
DX: Z13.820 Encounter for screening for osteoporosis (principal); M81.0 Age-related osteoporosis without current pathological fracture; Z78.0 Asymptomatic menopausal state
CPT/HCPCS: 77080

== ENCOUNTER 2024-03-04 06:13 | Outpatient (REF) | payer MEDICARE, OTHER, SELFPAY ==
[2024-03-04 06:27] LABS: MANUAL DIFF FLAG NO
[2024-03-04 07:59] LABS: Basophils Absolute Auto 0.1 X10*3/uL (0.0-0.2); Basophils Percent Auto 0.8 % (0-2); Eosinophils Absolute Auto 0.3 X10*3/uL (0.0-0.4); Eosinophils Percent Auto 3.6 % (0-4); Hematocrit 42.7 % (37.0-47.0); Hemoglobin 13.8 g/dl (12.0-16.0); Imm Gran Abs Auto 0.02 X10*3/uL (0.00-0.03); Imm Gran Pct Auto 0.3 % (0.0-0.4); Lymphocytes Absolute Auto 1.8 X10*3/uL (1.2-4.9); Lymphocytes Percent Auto 25.1 % (20-40); Mean Corpuscular HGB Conc 32.3 g/dl (31.0-35.0); Mean Corpuscular Hemoglobin 31.4 pg (27.0-33.0); Mean Platelet Volume 11.2 fL (9.4-12.3); Monocytes Absolute Auto 0.9 X10*3/uL (0.1-1.2); Monocytes Percent Auto 12.4 % (2-11); Neutrophils Absolute Auto 4.1 x10*3/uL (2.0-8.3); Neutrophils Percent Auto 57.8 % (45-73); Platelet Count 275 X10*3/uL (160-400); Red Cell Distribution Width 12.3 % (11.0-16.0); White Blood Count 7.2 X10*3/uL (4.8-10.8)
[2024-03-04 08:06] LABS: Estimated Average Glucose 114 mg/dL; Hemoglobin A1c % 5.6 % (<6.0)
[2024-03-04 08:36] LABS: Alanine Aminotransferase 13 U/L (0-31); Albumin Level 4.2 g/dL (3.5-5.0); Alkaline Phosphatase 120 U/L (39-117); Anion Gap 14 (12-20); Aspartate Amino Transferase 23 U/L (5-31); Bilirubin Total 0.6 mg/dL (0.0-1.0); Blood Urea Nitrogen 24 mg/dL (9-16); Calcium 10.1 mg/dL (8.4-10.2); Carbon Dioxide 29 mmol/L (22-29); Chloride 102 mmol/L (96-108); Cholesterol 153 mg/dL (<200); Estimated Glomerular Filt Rate 55; Glucose Random 106 mg/dL (60-115); HDL Cholesterol 55 mg/dL (>40); LDL Cholesterol Calculated 78 mg/dL (<100); Potassium 3.7 mmol/L (3.3-5.1); Sodium 141 mmol/L (135-145); Total Protein 7.5 g/dL (6.5-8.0); Triglycerides 104 mg/dL (<150)
[2024-03-04 08:57] LABS: TSH reflex Free T4 1.88 uIU/mL (0.32-4.0)
== END 2024-03-04 06:14 | disposition home or self-care (01) ==
LOC: HO.LAB 06:13
PROVIDERS: PCP Internal Medicine; Visit Provider Internal Medicine
DX: E78.00 Pure hypercholesterolemia, unspecified (principal); R73.01 Impaired fasting glucose; I10 Essential (primary) hypertension
CPT/HCPCS: 36415; 80053; 80061; 83036; 84443; 85025

== ENCOUNTER 2024-09-15 06:10 | Outpatient (REF) | payer MEDICARE, OTHER, SELFPAY ==
[2024-09-15 06:31] LABS: MANUAL DIFF FLAG NO
[2024-09-15 07:50] LABS: Basophils Absolute Auto 0.1 X10*3/uL (0.0-0.2); Basophils Percent Auto 0.8 % (0-2); Eosinophils Absolute Auto 0.3 X10*3/uL (0.0-0.4); Eosinophils Percent Auto 5.1 % (0-4); Hematocrit 42.3 % (37.0-47.0); Hemoglobin 13.6 g/dl (12.0-16.0); Imm Gran Abs Auto 0.01 X10*3/uL (0.00-0.03); Imm Gran Pct Auto 0.2 % (0.0-0.4); Lymphocytes Absolute Auto 1.4 X10*3/uL (1.2-4.9); Lymphocytes Percent Auto 22.3 % (20-40); Mean Corpuscular HGB Conc 32.2 g/dl (31.0-35.0); Mean Corpuscular Hemoglobin 31.1 pg (27.0-33.0); Mean Corpuscular Volume 96.6 fL (80.0-98.0); Mean Platelet Volume 11.2 fL (9.4-12.3); Monocytes Absolute Auto 0.8 X10*3/uL (0.1-1.2); Monocytes Percent Auto 12.8 % (2-11); Neutrophils Absolute Auto 3.6 x10*3/uL (2.0-8.3); Neutrophils Percent Auto 58.8 % (45-73); Platelet Count 240 X10*3/uL (160-400); Red Blood Count 4.38 X10*6/uL (4.20-5.50); Red Cell Distribution Width 12.6 % (11.0-16.0); White Blood Count 6.1 X10*3/uL (4.8-10.8)
[2024-09-15 08:22] LABS: Alanine Aminotransferase 17 U/L (0-31); Albumin Level 4.1 g/dL (3.5-5.0); Alkaline Phosphatase 107 U/L (39-117); Anion Gap 16 (12-20); Aspartate Amino Transferase 28 U/L (5-31); Bilirubin Total 0.5 mg/dL (0.0-1.0); Blood Urea Nitrogen 30 mg/dL (9-16); Calcium 10.4 mg/dL (8.4-10.2); Carbon Dioxide 27 mmol/L (22-29); Chloride 104 mmol/L (96-108); Estimated Glomerular Filt Rate 44; Glucose Random 112 mg/dL (60-115); Potassium 4.5 mmol/L (3.3-5.1); Sodium 142 mmol/L (135-145); Total Protein 7.2 g/dL (6.5-8.0)
[2024-09-15 08:36] LABS: Vitamin B12 306 pg/mL (200-900)
[2024-09-15 08:39] LABS: Vitamin D 25-OH Total 45.9 ng/mL (>30)
== END 2024-09-15 06:11 | disposition home or self-care (01) ==
LOC: HO.LAB 06:10
PROVIDERS: PCP Internal Medicine; Visit Provider Internal Medicine
DX: I10 Essential (primary) hypertension (principal); R41.3 Other amnesia; M81.0 Age-related osteoporosis without current pathological fracture
CPT/HCPCS: 36415; 80053; 82306; 82607; 85025

== ENCOUNTER 2025-01-22 08:26 | Emergency (ER) | payer MEDICARE, OTHER, SELFPAY ==
[2025-01-22 09:07] VITALS: BP 171/54; PULSE 73; RESP 18; TEMP 36.7; O2SAT 98; BMI 20.7
--- NOTE | 2025-01-22 10:35 | ED_ITS ---
HPI - Skin/Abscess/Foreign Bdy General Chief complaint: Skin/Abscess/Foreign Body Stated complaint: l great toe infection Time Seen by Provider: 01/22/25 10:08 Source: patient and RN notes reviewed Mode of arrival: ambulatory Limitations: no limitations History of Present Illness ED Provider: Elizabeth Kothari PA-C HPI narrative: This is a 84-year-old female, with a history of hypertension, hyperlipidemia, and cardiomyopathy, who presents emergency department with complaints of right great toe pain x 3 days. Patient reports that she had a pedicure on Friday and believes that the manicurist had cut a piece of her skin. She states that later on that night she developed pain and redness. She has been taking Tylenol for her symptoms. No fevers or chills. No history of gout. Unsure when her last tetanus shot was. No other complaints or concerns at this time. MD complaint: laceration Tetanus up to date: unsure Severity: moderate Quality: aching Pain Consistency: constant Relieving factors: none Exacerbating factors: palpation Context: none Associated symptoms: denies other symptoms Treatments prior to arrival: none Related Data Previous Rx's ?Medication ?Instructions ?Recorded acetaminophen 500 mg tablet 500 mg PO Q6H PRN pain or fever 10/27/21 (Tylenol Extra Strength) #20 tabs cyclobenzaprine 5 mg tablet 5 mg PO Q8H PRN pain (scale score 10/27/21 7-10) 5 days #14 tabs lidocaine 5 % topical patch 1 patch topical DAILY PRN pain #30 10/27/21 (Lidoderm) ea naproxen 500 mg tablet 500 mg PO BID PRN pain 10 days #20 10/27/21 tabs cephalexin 500 mg capsule 500 mg PO QID 5 days #20 caps 01/22/25 doxycycline hyclate 100 mg capsule 100 mg PO BID 5 days #10 caps 01/22/25 Allergies Allergy/AdvReac Type Severity Reaction Status Date / Time No Known Allergies Allergy Verified 01/22/25 09:09 [No Known Allergies*] Review of Systems 2 Review of Systems: Yes all other systems are reviewed and are negative Constitutional: Constitutional: Reports as per HPI [facility] Past Medical History Medical History Cardiomyopathy High cholesterol HTN (hypertension) Social History Social History Smoked in Last 30 Days: Yes Use of substances other than those prescribed or required for medical reasons: No Advance Directives: No Advance Directives Information Provided: No Physical Exam 2 Vital Signs: Vital Signs: Last Vital Signs Temp 98.0 F 01/22/25 10:52 Pulse 73 01/22/25 10:52 Resp 18 01/22/25 10:52 BP 171/54 H 01/22/25 10:52 Pulse Ox 98 01/22/25 10:52 O2 Del Method Room Air 01/22/25 10:52 BMI result Body Mass Index 20.7 Const: General: cooperative, comfortable and no acute distress O rientation/consciousness: patient oriented x3 Limitations: no limitations HEENT: Head: Yes normal to inspection, Yes normocephalic and Yes atraumatic Ears: hearing grossly normal bilaterally General nose exam: Normal external nose present Face and sinus: Yes normal facial exam Mouth: Normal oral and palatal mucosa present, oropharynx normal and moist mucous membranes Throat: Yes posterior oropharynx normal Eyes: General: appearance normal, both eyes and all related structures E yelids: Yes eyelids normal Conjunctivae: conjunctivae normal Sclerae: s clerae normal Pupils: Equal, round and reactive pupils present EOM: EOMs intact bilaterally Neck: Neck: Yes normal visual inspection and Yes full ROM Chest: Chest palpation & inspection: normal inspection of the chest Resp: Effort & Inspection: normal respiratory effort and able to speak in complete sentences Auscultation: rales Cardio: Rate: regular rate Rhythm: regular rhythm Heart sounds: S1 normal heart sound present and S2 normal heart sound present GI: Inspection: Yes normal to inspection Skin: Other: Right great toe is erythematous and edematous, with tender to palpation, there is a slight superficial abrasion noted at the left lateral nail bed, no drainage noted. Strong DP pulse. Cap refill less than 2 seconds. Neuro: General: patient oriented x3 and moves all extremities Cranial nerves: Yes Equal, round and reactive pupils present Extrem: General: Yes normal to inspection Right upper extremity: normal to inspection Left upper extremity: normal to inspection Right lower extremity: normal to inspection Left lower extremity: normal to inspection Medications Administered Discontinued Medications Generic Name Dose Route Start Last Admin Trade Name Freq PRN Reason Stop Dose Admin Diphtheria/Tetanus/Acell Pertussis 0.5 ml 01/22/25 10:38 01/22/25 10:49 Diphth,Pertus(Acell),Tet Adult 0.5 Ml Syringe IM 01/22/25 10:39 0.5 ml .ONCE ONE Administration Medical Decision Making Medical Decision Making [facility] Narrative: This is a 84-year-old female, with a history of hypertension, hyperlipidemia, and cardiomyopathy, who presents emergency department with complaints of right great toe pain x 3 days. on arrival, blood pressure mildly elevated 171/54. She was asymptomatic, denies any chest pain, shortness for breath, dizziness or lightheadedness. Patient has right great toe erythema and tenderness. No history of gout. differential diagnoses include gouty arthritis, cellulitis, abscess, paronychia. Unsure of tetanus status therefore tetanus was updated. Given pedicure likely introducing bacteria, will cover as a skin infection with Keflex and doxycycline. Given strict return precautions. She understands and agrees plan. Patient stable for discharge Differential Diagnosis Differential Diagnoses: The differential diagnosis associated with the presentation includes see above Discharge Plan Discharge Clinical Impression: Cellulitis Patient Disposition: Home, Self-Care Instructions: Cellulitis (ED) Additional Instructions: You were seen in the emergency department due to right great toe pain. You have the start of a skin infection. Please take prescribed antibiotics as directed. finish the entire course even if your symptoms improve. Soak your toe in warm soapy water. Do this multiple times per day. We updated your tetanus shot in the department today. Please update your records. Watch for any new or worsening symptoms including but not limited to increased redness, swelling, pain. If any of these occur, please seek emergent care. Prescriptions: New cephalexin 500 mg capsule 500 mg PO QID 5 Days Qty: 20 0RF doxycycline hyclate 100 mg capsule 100 mg PO BID 5 Days Qty: 10 0RF No Action acetaminophen [Tylenol Extra Strength] 500 mg tablet 500 mg PO Q6H PRN (Reason: pain or fever) Qty: 20 0RF lidocaine [Lidoderm] 5 % adhesive patch,medicated 1 patch topical DAILY MDD remove after 12 hours PRN (Reason: pain) Qty: 30 0RF Rx Instructions: leave on most painful area for up to 12 hrs naproxen 500 mg tablet 500 mg PO BID PRN (Reason: pain) 10 Days Qty: 20 0RF cyclobenzaprine 5 mg tablet 5 mg PO Q8H PRN (Reason: pain (scale score 7-10)) 5 Days Qty: 14 0RF Interventions: ED Discharge Assessment Last Done: 01/22/25 10:52 Discharge Date/Time: 01/22/25 11:00 Print Language: Slovenian
[2025-01-22] MEDS: Diphth,Pertus(ACell),Tet Adult 0.5 ML SYRINGE IM (10:49)
[2025-01-22 10:52] VITALS: BP 171/54; PULSE 73; RESP 18; TEMP 36.7; O2SAT 98
== END 2025-01-22 11:00 | disposition home or self-care (01) ==
PROVIDERS: Emergency Provider Emergency Medicine; PCP Internal Medicine
DX: L03.031 Cellulitis of right toe (principal); S90.411A Abrasion, right great toe, initial encounter; X58.XXXA Exposure to other specified factors, initial encounter; M79.674 Pain in right toe(s); I10 Essential (primary) hypertension; E78.5 Hyperlipidemia, unspecified; Z79.899 Other long term (current) drug therapy; Z23 Encounter for immunization; Y93.89 Activity, other specified; Y92.59 Other trade areas as the place of occurrence of the external cause; Y99.9 Unspecified external cause status
CPT/HCPCS: 90471; 90715; 99284

== ENCOUNTER 2025-02-11 06:34 | Outpatient (REF) | payer MEDICARE, OTHER, SELFPAY ==
--- OUTSIDE RECORDS SUMMARY | 2025-02-11 06:37 | XMS_ITS | Continuity of Care Document ---
Author Organization [facility] Address [address] [place] [id number] Care Team Providers Care Undertaker Helper Name Role Phone Jose Moore MD Primary Care Physician [phone] [place] [facility] [place] 02/06/25 [facility] [address] [place] [id number] Encounter Type: Triage Allergies, Adverse Reactions, Alerts No Known Allergies Immunizations Given and Recorded Vaccine Date Status Refusal Reason SARS-CoV-2 (COVID-19) mRNA BNT-162b2 vac 01/14/21 Given SARS-CoV-2 (COVID-19) mRNA BNT-162b2 vac 12/24/20 Given Medications alendronate 70 mg oral tablet 1 tablet = 70 mg, By Mouth, Every week, # 4 tablet, 0 Refills, Maintenance, 02/19/21 2:06:00 PM EDT,Tablet, Partial fill upon patient request if the prescription is for a schedule II opioid drug. Start Date: 02/19/21 Status: Ordered Quantity: 4.0 Unit: tablet Repeat number: 1 atorvastatin 10 mg oral tablet 1 tablet = 10 mg, By Mouth, Daily, # 30 tablet, 0 Refills, Maintenance, 02/23/20 10:04:00 AM EDT Start Date: 02/23/20 Status: Ordered Quantity: 30.0 Unit: tablet Repeat number: 1 Citracal Maximum + D oral tablet 1 tablet, By Mouth, 2 times a day, # 60 tablet, 0 Refills, Maintenance, 02/19/21 2:06:00 PM EDT, Tablet, Partial fill upon patient request if the prescription is for a schedule II opioid drug. Start Date: 02/19/21 Status: Ordered Quantity: 60.0 Unit: tablet Repeat number: 1 Cyclobenzaprine By Mouth, 0 Refills, Maintenance, 11/05/21 12:48:00 PM EST, Partial fill upon patient request if the prescription is for a schedule II opioid drug. Start Date: 11/05/21 Status: Ordered Repeat number: 1 hydrochlorothiazide 25 mg oral tablet 1, tablet, By Mouth, Daily, # 90 tablet, Refills 3, Tot. Refills 3, Maintenance, 01/07/25 2:50:00 PMEST, Route to Pharmacy Electronically, [facility]/pharmacy #[id number], 157, cm, 11/11/24 8:53:00 EST, Height, 54.7, kg, 11/11/24 8:53:00 EST, Dry Weight Start Date: 01/07/25 Status: Ordered Quantity: 90.0 Unit: tablet Repeat number: 4 ICaps with Lutein and Zeaxan By Mouth, Daily, 0 Refills, Maintenance, 02/25/22 11:22:00 AM EDT, Partial fill upon patient requestif the prescription is for a schedule II opioid drug. Start Date: 02/25/22 Status: Ordered Repeat number: 1 irbesartan 150 mg oral tablet 1 tablet, By Mouth, Daily, # 90 tablet, 0 Refills, Maintenance, 12/20/24 7:53:00 AM EST, [id number], 157, cm, 11/11/24 8:53:00 EST, Height, 54.7, kg, 11/11/24 8:53:00 EST, Dry Weight Start Date: 12/20/24 Status: Ordered Quantity: 90.0 Unit: tablet Repeat number: 1 metoprolol 100 mg oral tablet, extended release 100 mg, 1, tablet, By Mouth, Daily, # 90 tablet, Refills 3, Tot. Refills 3, Maintenance, 01/07/25 2:50:00 PM EST, Route to Pharmacy Electronically, [facility]/pharmacy #[id number], Partial fill upon patient request if the prescription is for a schedule II opioid drug., 157, cm, 11/11/24 8:53:00 EST, Height, 54.7, kg, 11/11/24 8:53:00 EST, Dry Weight Start Date: 01/07/25 Status: Ordered Quantity: 90.0 Unit: tablet Repeat number: 4 PredniSONE By Mouth, Daily, 0 Refills, Maintenance, 11/05/21 12:47:00 PM EST, Partial fill upon patient request if the prescription is for a schedule II opioid drug. Start Date: 11/05/21 Status: Ordered Repeat number: 1 tylenol 500 mg tylenol 500 mg, Refills 0, Maintenance, 11/05/21 12:47:00 PM EST, Supply Start Date: 11/05/21 Status: Ordered Repeat number: 1 Vitamin D 30544 iu oral capsule 1, capsule, By Mouth, Every week, # 4 capsule, Refills 0, Maintenance, 02/19/21 2:07:00 PM EDT, Partial fill upon patient request if the prescription is for a schedule II opioid drug. Start Date: 02/19/21 Status: Ordered Quantity: 4.0 Unit: capsule Repeat number: 1 Problem List Condition Confirmation Course Effective Dates Status H ealth Status Informant Appendicitis Confirmed Active Cholelithiasis Confirmed Active Hyperlipidemia Confirmed Active HTN (hypertension) Confirmed Active Monoclonal gammopathy Confirmed Active Osteoporosis Confirmed Active Pericarditis 1 Confirmed Active [id number] Social History Social History Type Response Tobacco Use: 4 or less cigar ettes(less than 1/4 pack)/day in last 30 days. Interested in cessation: No. No, Other: 5 cigs/d x 52y.. Sex Sex Representation Female (finding) Patient Care team information Care Team Personnel Name: Mavis Hurt Position: [facility] Onco RN Member Role: Primary Care Nurse Name: Jose Moore MD Position: [facility] Outreach Member Role: PCP Address: [address] [place] [address] Internal Medicine [place], [place] [address] Telecom: Care Team Related Persons Name: ELICIA PINON Insurance Providers Guarantor name: SIL PINON Health Plan Information #: 1 Payer: MEDICARE PART B OUTPT Member Number: NA Policy Number: NA Group Number: NA Health Plan Information #: 2 Payer: [facility] Member Number: NA Policy Number: NA Group Number: NA
[2025-02-11 06:47] LABS: MANUAL DIFF FLAG NO
[2025-02-11 07:43] LABS: Basophils Percent Auto 0.4 % (0-2); Eosinophils Absolute Auto 0.3 X10*3/uL (0.0-0.4); Eosinophils Percent Auto 2.6 % (0-4); Hematocrit 40.4 % (37.0-47.0); Hemoglobin 13.1 g/dl (12.0-16.0); Imm Gran Abs Auto 0.04 X10*3/uL (0.00-0.03); Imm Gran Pct Auto 0.4 % (0.0-0.4); Lymphocytes Absolute Auto 1.8 X10*3/uL (1.2-4.9); Lymphocytes Percent Auto 18.8 % (20-40); Mean Corpuscular HGB Conc 32.4 g/dl (31.0-35.0); Mean Corpuscular Volume 95.5 fL (80.0-98.0); Monocytes Absolute Auto 1.1 X10*3/uL (0.1-1.2); Monocytes Percent Auto 11.1 % (2-11); Neutrophils Absolute Auto 6.3 x10*3/uL (2.0-8.3); Neutrophils Percent Auto 66.7 % (45-73); Platelet Count 266 X10*3/uL (160-400); Red Blood Count 4.23 X10*6/uL (4.20-5.50); Red Cell Distribution Width 12.3 % (11.0-16.0); White Blood Count 9.4 X10*3/uL (4.8-10.8)
[2025-02-11 07:50] LABS: Estimated Average Glucose 114 mg/dL; Hemoglobin A1C 132.9897 umol/L; Hemoglobin A1c % 5.6 % (<6.0); Total Hemoglobin (HGBA1C) 3518.9202 umol/L
[2025-02-11 07:54] LABS: Appearance Urine Clear; Color Urine Yellow; Glucose Urine UA Negative (Negative); Leukocyte Esterase Urine Trace (Negative); Nitrite Urine Negative (Negative); PH 6.5 (5.0-9.0); UMIC TRIGGER UA YES; Urine Blood Negative (Negative); Urine Ketones Negative (Negative); Urine Protein Negative (Neg-Trace)
[2025-02-11 07:59] LABS: Bacteria Urine None Seen (None Seen); Hyaline Casts Urine 0-2 /LPF (0-2); RBC Urine 0-2 /HPF (0-2); Squamous Epithelial Cell Urine 0-2 /HPF (0-2)
[2025-02-11 08:30] LABS: Alanine Aminotransferase 14 U/L (0-31); Alkaline Phosphatase 130 U/L (39-117); Anion Gap 12 (12-20); Aspartate Amino Transferase 26 U/L (5-31); Bilirubin Total 0.4 mg/dL (0.0-1.0); Blood Urea Nitrogen 26 mg/dL (9-16); Calcium 10.1 mg/dL (8.4-10.2); Carbon Dioxide 29 mmol/L (22-29); Chloride 105 mmol/L (96-108); Cholesterol 150 mg/dL (<200); Estimated Glomerular Filt Rate 54; Glucose Random 107 mg/dL (60-115); HDL Cholesterol 49 mg/dL (>40); LDL Cholesterol Calculated 78 mg/dL (<100); Potassium 3.6 mmol/L (3.3-5.1); Sodium 142 mmol/L (135-145); Total Protein 7.1 g/dL (6.5-8.0); Triglycerides 116 mg/dL (<150)
[2025-02-11 08:54] LABS: Thyroid Stimulating Hormone 1.99 uIU/mL (0.32-4.0)
== END 2025-02-11 06:35 | disposition home or self-care (01) ==
LOC: HO.LAB 06:34
PROVIDERS: PCP Internal Medicine; Visit Provider Internal Medicine
DX: I10 Essential (primary) hypertension (principal); E78.00 Pure hypercholesterolemia, unspecified; Z13.1 Encounter for screening for diabetes mellitus
CPT/HCPCS: 36415; 80053; 80061; 81001; 83036; 84443; 85025

== ENCOUNTER 2025-03-21 06:11 | Outpatient (REF) | payer MEDICARE, OTHER, SELFPAY ==
[2025-03-21 07:39] LABS: Anion Gap 13 (12-20); Blood Urea Nitrogen 35 mg/dL (9-16); Calcium 10.4 mg/dL (8.4-10.2); Carbon Dioxide 31 mmol/L (22-29); Chloride 101 mmol/L (96-108); Estimated Glomerular Filt Rate 52; Glucose Random 103 mg/dL (60-115); Potassium 4.2 mmol/L (3.3-5.1); Sodium 141 mmol/L (135-145)
[2025-03-21 07:42] LABS: Estimated Average Glucose 114 mg/dL; Hemoglobin A1C 136.3265 umol/L; Hemoglobin A1c % 5.6 % (<6.0); Total Hemoglobin (HGBA1C) 3611.3545 umol/L
== END 2025-03-21 06:12 | disposition home or self-care (01) ==
LOC: HO.LAB 06:11
PROVIDERS: PCP Internal Medicine; Visit Provider Internal Medicine
DX: I10 Essential (primary) hypertension (principal); R73.01 Impaired fasting glucose
CPT/HCPCS: 36415; 80048; 83036; 83735

== ENCOUNTER 2025-08-20 08:19 | Emergency (ER) | payer MEDICARE, OTHER, SELFPAY ==
[2025-08-20 08:31] VITALS: BP 149/92; PULSE 76; RESP 15; TEMP 36.6; O2SAT 96; BMI 20.3
[2025-08-20 08:39] VITALS: BP 149/92; PULSE 76; RESP 15; TEMP 36.6; O2SAT 96
--- NOTE | 2025-08-20 08:42 | PC.NURSE ---
Patient presents to ED with irritation right great toe Patient was trimming toe nails and toe has become red, warm, and slightly swollen Patient reports pain 1/10 in the toe non radiating +CMS +ROM Denies SOB, fevers, chills, numbness in extremity, thinners VSS and up to date Provider in to see patient Plan of care on going
[2025-08-20 08:47] VITALS: BP 162/49; PULSE 77; RESP 14; TEMP 36.4; O2SAT 98
--- OUTSIDE RECORDS SUMMARY | 2025-08-20 09:02 | XMS_ITS | Clinical Summary ---
Author Organization [facility] Address [address] [address] Phone Care Team Providers Care Continuous Mining Machine Lode Miner Name Role Phone Jose Moore MD Primary Care Provider [phone] Jose Moore MD Unavailable [phone] Harinder Damico MD Unavailable [phone] Juve Rosario MD Unavailable Earlene Saldana MD Unavailable Allergies No known active allergies Medications calcium citrate-vitamin D3 (CITRACAL+D) 315-200 mg-unit per tablet Take 1 tablet by mouth daily. Active cholecalciferol, vitamin D3, 1,000 unit capsule 1 capsule twice a week Active vitamins A,C,R-mpgq-gfrxes (PRESERVISION AREDS) 14,320-226-200 aabc-ub-bsgt Cap Take 1 capsule by mouth 2 (two) times a day with meals. Active acetaminophen (TYLENOL) 325 mg tablet Take 325 mg by mouth 2 (two) times a day as needed. Active hydroCHLOROthiazide (HYDRODIURIL) 25 MG tabletIndications:Odilia n essential hypertension Take 1 tablet (25 mg total) by mouth daily. 90 tablet 5 09/08/20 23 Active phenylephrine-acetamino phen (TYLENOL SINUS HEADACHE) 5-325 mg Tab Take 1 tablet by mouth 2 (two) times a day as needed. Active metoprolol succinate (TOPROL-XL) 100 MG 24 hr tablet Take 100 mg by mouth daily. Managed by Dr. Rosario from [facility] Active irbesartan (AVAPRO) 150 MG tabletIndications:Esssharri tial (primary) hypertension Take 1 tablet (150 mg total) by mouth daily. 90 tablet 3 12/20/19 Active atorvastatin (LIPITOR) 10 MG tabletIndications:Pure hypercholesterolemia TAKE 1 TABLET BY MOUTH EVERY DAY 90 tablet 3 04/07/20 25 Active Active Problems Problem Noted Date Diagnosed Date Monoclonal gammopathy 01/05/2024 Assessment & Plan (01/05/2024 4:20 PM EST): Follows w/ asa Denis. Neck pain, chronic 07/08/2023 Assessment & Plan (07/08/2023 10:44 AM EDT): Pain in left neck since April- She has strained her left trapezius muscle.I suspect her head position during the dental work triggered this. Her neuro exam is normal. She is agreeable to go to PT. She will go to the [facility] and set up her self. She can continue heat and may try topical icy hot or loren vaca with massage. She will call us back for any changes or concerns Cervical strain 07/08/2023 Assessment & Plan (07/08/2023 10:43 AM EDT): She has strained her left trapezius muscle. Her neuro exam is normal. She is agreeable to go to PT. She will go to the [facility] and set up her self. She can continue heat and may try topical icy hot or loren vaca with massage. She will call us back for any changes or concerns Pain of maxillary sinus 07/08/2023 Assessment & Plan (07/08/2023 1:25 PM EDT): No evidence of infection today. I suspect with the alternating weather patterns- she has had on and off pressure, but no infection. She can continue home remedies to soothe Hypertrophic cardiomyopathy 03/30/2021 Assessment & Plan (07/08/2023 1:22 PM EDT): She has known cardiomyopathy and ECHO from 2019 shows mild tricuspid regurg. She is not symptomatic. Continue to monitor Essential (primary) hypertension 10/06/2017 Hyperlipidemia 10/06/2017 Essential hypertension 10/06/2017 Osteoporosis 10/06/2017 Overview (01/18/2025): no fracture - alendronate 01/2020-01/2025, bone density - [facility] - 10/09/2023 Assessment & Plan (01/18/2025 12:08 PM EDT): Clinically stable. No falls or fractures. Getting a good amount of calcium/vitamin D & weight-bearing exercise, No side effects of rx. Seeing dentist regularly. Has been on rx for 5 yrs so will go ahead with a drug holiday , reviewed rationale. Will continue to monitor, repeat bone density later in the year. Continue to work on getting adequate calcium & D, weight-bearing exercise & avoiding falls. Assessment & Plan (01/05/2024 4:19 PM EST): Clinically stable. No falls or fractures. Getting a good amount of calcium/vitamin D & weight-bearing exercise, No side effects of rx. Seeing dentist regularly. Tentative plan to continue rx through next January & then give a drug holiday. Pure hypercholesterolemia 10/06/2017 Tobacco use 10/06/2017 Immunizations Immunization Administration Dates Next Due COVID-19 (Pre-09/01) Pfizer Vaccine, mRNA, PF 01/14/2021,12/24/2020 INFLUENZA, SPLIT VIRUS, TRIV ALENT W/ PRESERVATIVE IM 09/06/2014,08/25/2012 Influenza High-Dose Quadriva lent Preservative Free IM 09/08/2023,09/03/2022,08/29/2021,06/29 Influenza High-Dose Trivalen t Preservative Free IM 08/27/2024,08/20/2019,08/07/2018,10/06,10/07/2016,10/18/2015,10/12/2013 Influenza Trivalent Adjuvant ed Preservative free IM 08/27/2024 Influenza, Unspecified Formulation 09/02/2011 Pneumococcal conjugate PCV13 08/21/2020 Pneumococcal polysaccharide PPSV23 01/08/2010 Td (adult) 5 Lf Tetanus Toxo id, PF, Adsorbed 09/24/2011 Tdap 01/22/2025 Zoster live 12/21/2012 Family History Medical History Relation Comments Heart disease Father Heart disease Mother Heart disease Sister Nephrolithiasis Neg Hx Osteoporosis Neg Hx Osteoporotic fracture Neg Hx Relation Status Comments Father Mother Sister Social History Tobacco Use Types Packs/Day Years Used Date Smoking Tobacco: Every Day Cigarettes 0.3 112.8 Started: 1960 Smokeless Tobacco: Never Tobacco Cessation:Ready to Q uit: Not Asked; Counseling Given: Not Answered Comments:smokes 4-5 cigarettes QD noted 03/02/24 Smokes 5 cigarettes QD-noted 06/03/24, 4 cigarettes QD-noted 03/17/25 Alcohol Use Standard Drinks/Week Comments Yes 1 (1 standard drink = 0.6 oz pure alcohol) 1 drink week only while out for dinner. Education Answer Date Recorded Are you interested in more education? Not on holly e 03/07/2023 Are you concerned about learning? Not on file 03/07/2023 No 03/07/2023 No 03/07/2023 Digital Access Answer Date Recorded No 04/06/2023 No 04/06/2023 Reliable internet access at home? Not on file 04/06/2023 Device with a working camera? Not on file Intimate Partner Violence Answer Date R ecorded Denied Basic Needs Not on file 09/14/2024 In the past 12 months have y ou been in a relationship with a person who hurts, threatens, or tries to control you? No 09/14/2024 Worried food would run out Not on file 09/14 In the past 12 months have y ou been in a relationship with a person who hurts, threatens, or tries to control you? No 09/14/2024 Comments No Sex and Gender Information Value Date Recorded Sex Assigned at Female 03/21/2022 10:33 PM EDT Legal Sex Female 10:11 PM EDT Gender Identity Female 03/21/2022 10:33 PM EDT Sexual Orientation Straight 03/21/2022 10 :33 PM EDT Last Filed Vital Signs Vital Sign Reading Time Taken Comments Blood Pressure 163/66 03/17/2025 9:47 AM EDT Pulse 69 03/17/2025 9:47 AM EDT Temperature 36.6 C (97.8 F) 03/17/2025 9:47 AM EDT Respiratory Rate 12 03/17/2025 9:47 AM EDT Oxygen Saturation 100% 03/17/2025 9:47 AM EDT Inhaled Oxygen Concentration - - Weight 54.2 kg (119 lb 6.4 oz) 03/17/2025 9:47 A M EDT Height 157 cm (5' 1.81 ) 03/17/2025 9:47 AM EDT Body Mass Index 21.97 03/17/2025 9:47 AM EDT Plan of Treatment Upcoming Encounters Date Type Department Care Team (Late st Contact Info) Description 09/19/2025 9:30 AM EST Office Visit [facility] Internal Medicine [address] [place] [address] Jose Moore MD [address] [place] [address] [email or web address] 01/23/2026 10:20 AM EDT Office Visit [facility] Endocrinology [facility] [address] [place] [phone] Earlene Saldana MD [address] [place] [phone] [email or web address] Health Maintenance Due Date Last Done Comments ZOSTER VACCINES (2 of 3) 02/15/2013 12/21/2012 RSV VACCINE (1 - 1-dose 75+ series) 2017 INFLUENZA VACCINE (#1) 2025 , 08/27/2024, 09/08/2023, Additional history exists COVID-19 VACCINE ( season) 2025 11/15/2022, 02/11/2022, 08/08/2021, Additional history exists DEPRESSION SCREENING 09/14/2025 09/14/2024 BLOOD PRESSURE 09/17/2025 03/17/2025 CREATININE LEVEL 02/11/2026 02/11/2025, , 03/04/2024, Additional history exists POTASSIUM LEVEL 02/11/2026 02/11/2025, 02/09, 04/16/2023, Additional history exists FOLLOW UP BONE DENSITY TESTING 01/18/2027 01/18/2025, 10/13/2023, 10/03/2021, Additional history exists Adult Td,Tdap Booster 01/22/2035 01/22/2025, 011 PNEUMOCOCCAL VACCINES (50+ years) Completed 08/21/2020, 01/08/2010 OSTEOPOROSIS SCREENING INITIAL (ONE-TIME) Completed 01/18/2025, 10/13/2023, 10/03/2021, Additional history exists HEPATITIS A VACCINES Aged Out No long er eligible based on patient's age to complete this topic HIB VACCINES Aged Out No longer eligi ble based on patient's age to complete this topic MENINGOCOCCAL VACCINES (ACWY) Aged Out No longer eligible based on patient's age to complete this topic MENINGOCOCCAL VACCINES (B) Aged Out N o longer eligible based on patient's age to complete this topic Medical Devices Not on file Procedures Procedure Name Priority Date/Time Associated Diagnosis Comments OUTSIDE POTASSIUM LEVEL Routine 02/11/2025 OUTSIDE SERUM CREATININE LEVEL Routine 02/11/2025 BD DXA MONITORING Routine 01/18/2025 12: 01 PM EDT Age-related osteoporosis without current pathological fracture from Last 3 Months or Most Recently Relevant to Health Maintenance Results * Outside Potassium Level (02/11/2025) Potassium level - External 3.6 3.4 - 5.0 mmol/L EXTERNAL NON-INTERFACED REF LAB us Historical Provider LAB BLOOD ORDERABLES Evonne sheikh Result EXTERNAL NON-INTERFACED REF LAB * Outside Serum Creatinine Level (02/11/2025) Creatinine, serum - External 0.98 0.8 - 1.3 mg/dL EXTERNAL NON-INTERFACED REF LAB us Historical Provider LAB BLOOD ORDERABLES Evonne l Result EXTERNAL NON-INTERFACED REF LAB * DXA Monitoring (10/13/2023 3:59 PM EST) Anatomical Region Laterality Modality Bone Density Bone Density Jose Moore MD IMG BD BONE DENSITY DEXA Evonne l Result from Last 3 Months or Most Recently Relevant to Health Maintenance Insurance MEDICARE PART A & B [facility] MEDICARE SUPPLEMENT MEDICARE PART A & B [facility] MEDICARE SUPPLEMENT MEDICARE PART A & B [facility] [employer] MEDICARE SUPPLEMENT MEDICARE PART A & B Member Subscriber Plan / Payer (Ef fective 2007-Present) Name:Pricila Farnaz Member ID:[id number] Relation to Subscriber:Self Name:Farnaz Mcnulty Subscriber ID:[id number] Payer ID:[id number] Group ID:Not on file Type:Medicare Address: [employer] [address] [employer] MEDICARE SUPPLEMENT MEDICARE PART A & B [employer] MEDICARE SUPPLEMENT MEDICARE PART A & B [employer] MEDICARE SUPPLEMENT MEDICARE PART A & B [employer] MEDICARE SUPPLEMENT MEDICARE PART A & B [facility] MEDICARE SUPPLEMENT MEDICARE PART A & B [facility] [employer] MEDICARE SUPPLEMENT Care Teams Continuous Mining Machine Lode Miner Relationship Specialty Start Date End Date Jose Moore MD [address] [place] [id number] PCP - General 08/28/17 Jose Moore MD [address] [place] [phone] [email or web address] Insurance Assigned Provider 02/14/24 Harinder Damico MD [address] [place] [phone] [email or web address] Hematology 08/21/20 Juve Rosario MD [address] [place] [phone] Cardiology 08/21/20 Earlene Saldana MD [address] [place] [phone] [email or web address] Endocrinology 08/21/20 Additional Source Comments The information contained in this document represents components of the legal health record. It is not the complete legal health record.[facility]
--- OUTSIDE RECORDS SUMMARY | 2025-08-20 09:02 | XMS_ITS | Patient Health Record ---
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 Name Role Phone Jose Moore MD Primary Care Provider Carson Ha Unavailable [phone] Reason For Referral No Information Medications Medication SIG (Take, Route, Frequency, Duration) Notes Start Date End Date Status Vitamin D Active Citracal Plus Active hydroCHLOROthiazide 12.5mg Active Valsartan 160mg Acti ve Problems Problem Type SNOMED Code ICD Code Onset Dates Problem Status W/U Status Risk Notes Problem Onychomycosis (324180465) Onychomycosis (110.1) Active confirmed Problem Pain in limb (40015407) Pain in Limb (729.5) Active confirmed Problem Ingrowing nail (770705245) Ingrowing Nail (703.0) Active confirmed Plan Of Treatment Pending Test Test Name Order Date 54849-Oqrudcqd Plate 11/17/2013 31837- Debride <25 sq cm 12/02/2013 Insurance Providers Payer Name Payer Address Payer Phone Subscriber Number Group Number Insured Name Patient Relationship to Insured Coverage Start Date Coverage End Date Medicare [facility] [employer] [address] [place] [address] [id number] Farnaz Jones Self - patient is the insured [employer] ([employer]) [address] [place] [address] [id number] Farnaz Jones Self - patient is the insured Medical (General) History Medical History History ICD Code Hypertension Chicken pox Measles Mumps Surgical History Surgery Date(Month/Year) cholecystectomy 1990
--- NOTE | 2025-08-20 09:05 | ED_ITS ---
HPI - General Adult General Chief complaint: Skin/Abscess/Foreign Body Stated complaint: r big toe infection ingrown toenail Time Seen by Provider: 08/20/25 09:03 Source: patient Mode of arrival: ambulatory Limitations: no limitations History of Present Illness ED Provider: Mariam Corona PA-C HPI narrative: This is an 84 year old female with a history of cardiomyopathy, high cholesterol, and hypertension that presents for right first toe pain. She endorses that 2 days ago she noticed her nail was growing into the toe so she used a scissor tool to try to dig out the portion that was bothering her. She came in today because it has become red, swollen and painful. She has tried soaking to toe in warm water with no relief. She has not noticed any drainage from the area. She states that 1 year ago she went to get a pedicure and had developed an infection in the same toe. She states that this toenail is notably thicker than her others. She denies fever, sweats or chills. She denies chest pain, cough, or shortness of breath. Related Data Previous Rx's ?Medication ?Instructions ?Recorded acetaminophen 500 mg tablet 500 mg PO Q6H PRN pain or fever 10/27/21 (Tylenol Extra Strength) #20 tabs cyclobenzaprine 5 mg tablet 5 mg PO Q8H PRN pain (scal e score 10/27/21 7-10) 5 days #14 tabs lidocaine 5 % topical patch 1 patch topical DAILY PRN pain #30 10/27/21 (Lidoderm) ea naproxen 500 mg tablet 500 mg PO BID PRN pain 10 da ys #20 10/27/21 tabs cephalexin 500 mg capsule 500 mg PO QID 5 days #20 cap s 01/22/25 doxycycline hyclate 100 mg capsule 100 mg PO BID 5 day s #10 caps 01/22/25 cephalexin 500 mg capsule 500 mg PO Q6H 7 days #28 cap s 08/20/25 Allergies Allergy/AdvReac Type Severity Reaction Status Date / Time No Known Allergies (No Known Allergy Verified 08/20/25 08:32 Allergies*) Review of Systems Constitutional: Constitutional: Reports as per HPI Eyes: Eyes: Reports as per HPI ENT: Reports as per HPI Cardiovascular: Cardiovascular: Reports as per HPI Respiratory: Respiratory: Reports as per HPI Gastrointestinal: Gastrointestinal: Reports as per HPI Genitourinary: Genitourinary: Reports as per HPI Musculoskeletal: Musculoskeletal: Reports as per HPI Integumentary/Breasts: Skin/Breast: Reports as per HPI Neurologic: Reports as per HPI Psychiatric: Psychiatric: Reports as per HPI Endocrine: Endocrine: Reports as per HPI Hematologic/Lymphatic: Hematologic/Lymphatic: Reports as per HPI Allergic/Immunologic: Allergic/Immunologic: Reports as per HPI [facility] Past Medical History Attestation statement: The following information was validated with the patient. Source: old records reviewed and nursing notes reviewed Medical History Cardiomyopathy High cholesterol HTN (hypertension) Social History Social History Alcohol intake: current Alcohol intake frequency: 0-2 drinks per day Alcohol type: hard liquor Smoked in Last 30 Days: Yes Use of substances other than those prescribed or required for medical reasons: No Advance Directives: No Advance Directives Information Provided: No Do you have a plan to hurt others: No Plan Physical Exam ED Vital Signs: Vital Signs - 24 hr 08/20/25 08:31 08/20/25 08:39 08/20/25 08:47 Temperature 97.8 F 97.8 F 97.6 F Pulse Rate 76 76 77 Respiratory Rate 15 15 14 Blood Pressure 149/92 H 149/92 H 162/49 H Pulse Oximetry 96 96 98 Oxygen Delivery Method Room Air Room Air Room Air 08/20/25 10:11 Temperature 97.6 F Pulse Rate 77 Respiratory Rate 14 Blood Pressure 162/49 H Pulse Oximetry 98 Oxygen Delivery Method Room Air BMI result Body Mass Index 20.3 Const General: cooperative, no acute distress, alert and awake Nutritional Appearance: well nourished Orientation/consciousness: patient oriented x3 HENMT Head: Yes normal to inspection and Yes atraumatic Ears: hearing grossly normal bilaterally and external ears normal General nose exam: Normal external nose present, no nasal discharge noted and no epistaxis Face and sinus: Yes normal facial exam, No abrasion and No laceration Mouth: no drooling and no muffled voice Eyes General: appearance normal, both eyes and all related structures Periorbital: periorbital findings normal Eyelids: Yes eyelids normal Conjunctivae: conjunctivae normal Pupils: Equal, round and reactive pupils present EOM: EOMs intact bilaterally Neck Neck: Yes normal visual inspection and Yes full ROM Resp Effort & Inspection: normal respiratory effort and able to speak in complete sentences Neuro General: patient oriented x3 and moves all extremities Cranial nerves: Yes Equal, round and reactive pupils present Cognition (Neuro): normal cognition Extrem Other: Right great toe redness / erythema / swelling / pain Slight yellowing to right toe nails General: Yes full ROM and Yes capillary refill normal Psych Appearance: grossly normal Mental Status: mental status grossly normal Affect: normal affect Attitude: cooperative Thought process: Normal thought process present Thought content: Normal thought content present Insight: Good insight present (Psych) Medical Decision Making Medical Decision Making MDM Narrative: Patient is an 84 year old assigned female at with a history of HTN, cardiomyopathy, right great toe cellulitis s/p pedicure, and elevated cholesterol presenting to the emergency department today with right great toe redness / pain / swelling. Patient's physical exam was as noted in the physical exam portion of this note and consistent with right great toe cellulitis and possible toe nail fungus. While the toes are slightly discolored - I am not definitively convinced there is fungus. I explained my physical exam findings to the patient. I answered all questions asked by the patient. Patient prescribed cephalexin. I stressed the importance of the patient taking her medication as directed (either prescribed or as the over the counter packaging recommends). I stressed the importance of the patient following up with her primary care provider and the podiatry team. I stressed the importance of the patient returning to the emergency department immediately if her symptoms were to worsen or if she were to develop any dizziness, shortness of breath, difficulty breathing, chest pain, blurry vision, loss of vision, nausea, vomiting, abdominal pain, fever, chills, back pain, or any other complaints. Patient verbalized agreement and understanding with this treatment plan and discharge. Differential Diagnosis Differential Diagnoses: The differential diagnosis associated with the presentation includes Right great toe cellulitis Toe nail fungus Admission/Observation Consideration of admission/observation: Escalation of care including admission/observation considered Patient would have been admitted to the hospital had her clinical presentation warranted hospital admission. Prescription Management I considered prescription management with: Antibiotic (patient prescribed an antibiotic for right great toe cellulitis) Discharge Plan Discharge Clinical Impression: Cellulitis Patient Disposition: Home, Self-Care Instructions: Cellulitis (ED) Additional Instructions: Your examination is consistent with cellulitis (skin infection). I'm also concerned you may have a fungal infection of your toe nails but it is difficult to tell at this time. Take your antibiotic as prescribed. Follow up with the podiatry group. IF you are prescribed home medications and/or you are taking over the counter medications at home - it is very important you continue to do so as prescribed / directed unless told otherwise. Follow up with your primary care provider. Return to the emergency department immediately if your symptoms worsen or if you develop any numbness, tingling, dizziness, shortness of breath, difficulty breathing, chest pain, blurry vision, loss of vision, nausea, vomiting, abdominal pain, fever, chills, back pain, or any other complaints. Please see the information below about our Patient Portal. If you are not yet enrolled in the [facility] Patient Portal, you will receive an enrollment email invitation following your visit to any [facility] setting. You may also self-enroll in the Patient Portal by visiting our website: [email or web address] The following information is required to access the Patient Portal: - Your [facility] Medical Record Number - Your personal home email address (must match what is in your electronic medical record, Registration staff can assist with this) - Name - Date of Capabilities of the Patient Portal: - Message some providers - View upcoming appointments - Access your health summary, medical history, and visit history - View current conditions and allergies - View procedure and lab results - View your medications, including guidelines, side effects, and precautions - Complete pre-appointment questionnaires requested by your provider - Ready summary reports of your office visits and procedures To access the Patient Portal Mobile [employer], follow these directions: - Search [employer]amee in the [employer] Store or [email or web address] Store - Download the [employer] - Search for [facility] - Enter your login/password Prescriptions: New cephalexin 500 mg capsule 500 mg PO Q6H 7 Days Qty: 28 0RF No Action acetaminophen [Tylenol Extra Strength] 500 mg tablet 500 mg PO Q6H PRN (Reason: pain or fever) Qty: 20 0RF lidocaine [Lidoderm] 5 % adhesive patch,medicated 1 patch topical DAILY MDD remove after 12 hours PRN (Reason: pain) Qty: 30 0RF Rx Instructions: leave on most painful area for up to 12 hrs naproxen 500 mg tablet 500 mg PO BID PRN (Reason: pain) 10 Days Qty: 20 0RF cyclobenzaprine 5 mg tablet 5 mg PO Q8H PRN (Reason: pain (scale score 7-10)) 5 Days Qty: 14 0RF cephalexin 500 mg capsule 500 mg PO QID 5 Days Qty: 20 0RF doxycycline hyclate 100 mg capsule 100 mg PO BID 5 Days Qty: 10 0RF Referrals: [facility] Podiatry [Provider Group, Podiatry] Referral Note: Call to establish and follow up with our podiatry group (foot specialists). Jose Moore MD [Primary Care Provider, Internal Medicine] Interventions: ED Discharge Assessment Last Done: 08/20/25 10:11 Discharge Date/Time: 08/20/25 10:12 Print Language: Kiswahili
[2025-08-20 10:11] VITALS: BP 162/49; PULSE 77; RESP 14; TEMP 36.4; O2SAT 98
== END 2025-08-20 10:12 | disposition home or self-care (01) ==
PROVIDERS: Emergency Provider Emergency Medicine; PCP Internal Medicine
DX: L03.031 Cellulitis of right toe (principal); I10 Essential (primary) hypertension; E78.00 Pure hypercholesterolemia, unspecified; M79.674 Pain in right toe(s)
CPT/HCPCS: 99283; 99284

== ENCOUNTER 2025-09-05 11:24 | Outpatient (AMB) | payer MEDICARE, OTHER, SELFPAY ==
[2025-09-05 11:31] VITALS: BMI 20.9
--- NOTE | 2025-09-05 11:31 | MHC.OFFVIS ---
Vital Signs 09/05/25 11:31 Height 5 ft 4 in Weight 122 lb BMI 20.9 Intake Visit Reasons: cellulitis in rt great toe Intake Note: Farnaz is an 84 year old female who presents today as a new patient for an evaluation of her cellulites of the right hallux. Pt reports this has been going on since 08/20/25 and her PCP prescribed cephalexin for ten days and found it had help with her symptoms. She has not tried any other treatments at this time. Allergies No Known Allergies (No Known Allergies*) Allergy (Verified 09/05/25 11:32) HPI Comments Details: The patient is an 84-year-old female with a past medical history as seen below presenting with an ingrown toenail to the right hallux lateral border. The issue has been present since last month and is associated with swelling and redness, and drainage previously. Patient was seen in the ED on August 20 where she was prescribed a course of Keflex. Patient states she has completed the course. She states she continues to experience pain to the lateral nail border of the right hallux. Patient states she no longer notices drainage, purulence or bleeding. Patient states she attempted to remove the offending nail from the lateral nail border but still experiences pain. She states she was soaking her foot in Epsom salt and warm water with minimal relief. She denies any inciting injuries. Patient states she has had an ingrown toenail approximately 2 years ago but it was not as severe as it is today. She denies any other pedal concerns. She denies any nausea, vomiting, fever, or chills. [facility] Medical History (Updated 09/05/25 @ 11:41 by Susana Salomon DPM) Cellulitis of great toe, right Pain of right great toe Ingrowing nail, right great toe Cardiomyopathy High cholesterol HTN (hypertension) Social History Alcohol intake: current Alcohol intake frequency: 0-2 drinks per day Alcohol type: hard liquor Review of Systems Const Details: - Musculoskeletal: Reports pain to the lateral border of the right hallux. - Integumentary: Reports ingrown toenail, swelling, and redness of the right hallux. All systems reviewed & are unremarkable except as noted in HPI and below Physical Exam Vital Signs: BMI result Body Mass Index 20.9 Extrem Other: Right lower extremity focused physical exam: Derm: Mild edema and erythema noted to the right hallux with increased incurvation noted to the lateral nail border consistent with an ingrown toenail. No active bleeding, drainage, purulence noted. Remaining toenails within normal limits. No maceration noted. Skin supple and turgor within normal limits. No ecchymosis noted. Vasc: DP pulses palpable. PT pulses mildly palpable. CFT < 3 secs. Temp gradient warm to warm. Varicosities noted. Neuro: Protective sensations grossly intact. MSK: Pain on palpation to right hallux along lateral nail border. No fluctuance or crepitus noted. ROM of the forefoot, hindfoot, and ankle WNL. Mildly antalgic gait unassisted noted. Office Procedures AMB Debridement/Avulsion Podia Details: Procedure:Right hallux partial nail avulsion of the lateral border Cleansed right hallux with alcohol swab and injected 10cc of 1%lidocaine plain in a hallux block fashion. Next applied a tourniquet to the right hallux and then cleansed the right hallux with Betadine. Attention was drawn to the lateral border of the right hallux and a [place] was utilized to free the offending nail border from the nail bed. Next an Guyanese anvil was utilized to trim and cut the offending nail border and a hemostat was used to remove the offending nail border completely. A curette was used to ensure all spicules of the nail were removed from the nail bed. Triple antibiotic ointment a Band-Aid, 2x2 gauze, and Coban was then applied to the right hallux. Procedure was done with no incidents. Provided patient with aftercare instructions. 67930 Partial/Total nail avulsion (1 nail) Procedure code (CPT) selection complete Office Meds lidocaine HCl 10 mg/mL (1 %) injection solution Performing Provider: Susana Salomon DPM Performing Location: [facility] [place] Administered by: Susana Salomon DPM on 09/05/25 11:52 Dose Route Admin Location Dispensed Lot Number Expiration Date [facility] [employer] 10 mL subcut 10 mL [id number] HOSPIRA[employer]ZER Total Dispensed Waste 10 mL 0 % Triple Antibiotic 3.5 mg-400 unit-5,000 unit topical ointment packet Performing Provider: Susana Salomon DPM Performing Location: [facility] – [place] Administered by: Susana Salomon DPM on 09/05/25 11:52 Dose Route Admin Location Dispensed Lot Number Expiration Date [facility] [employer] 1 appl topical 1 appl [id number] [employer]AD[employer] povidone-iodine 10 % topical swab Performing Provider: Susana Salomon DPM Performing Location: [facility] – [place] [facility] Administered by: Susana Salomon DPM on 09/05/25 11:52 Dose Route Admin Location Dispensed Lot Number Expiration Date [facility] [employer] Intelligence [employer]st 1 appl topical 1 appl [id number] [employer] [place]. ethyl chloride 100 % topical spray Performing Provider: Susana Salomon DPM Performing Location: [facility] – [place] [facility] Administered by: Susana Salomon DPM on 09/05/25 11:52 Dose Route Admin Location Dispensed Lot Number Expiration Date [facility] Criminal [employer]st 3 appl topical 3 mL [id number] [employer]. Assessment & Plan Assessment & Plan (1) Ingrowing nail, right great toe: Code(s): L60.0 - Ingrowing nail Category: Medical (2) Cellulitis of great toe, right: Code(s): L03.031 - Cellulitis of right toe Category: Medical (3) Pain of right great toe: Code(s): M79.674 - Pain in right toe(s) Category: Medical Plan Patient was informed and verbally consented to the use of an ambient scribe for clinic note documentation during this visit. I discussed the procedure of a partial nail avulsion with the patient, explaining that it involves removing the corner of the nail that is causing discomfort. Post-procedure care was outlined, including the use of Epsom salt soaks and Neosporin application with a bandaid for 2 weeks. I advised the patient to monitor for signs of infection, such as pus or bleeding, and to contact the office if these occur. - Performed partial nail avulsion of right hallux lateral border. - Plan to numb the toe prior to the procedure, with the injection being the most painful part. - Post-procedure care includes leaving the bandage on for 24 hours, followed by soaking in Epsom salt and warm water, and applying Neosporin with a bandaid for 2 weeks. - Patient is to avoid barefoot walking and is to wear supportive shoe gear. - Patient may take Tylenol or Ibuprofen prn for pain. - Advised patient to wear shoes with a wide-toebox. - Patient may be WBAT to the E. RTC in 2 weeks. Orders: Orders AMB Debridement/Avulsion Podiatry 09/05/25 L03.031 - Cellulitis of right toe, L60.0 - Ingrowing nail, M79.674 - Pain in right toe(s) Medications: Discontinued cephalexin Discontinued Reason: Patient Completed Course 500 mg PO QID 5 days 20 caps 0RF cephalexin Discontinued Reason: Patient Completed Course 500 mg PO Q6H 7 days 28 caps 0RF Coding Level of Care Code New Pt Level 4 (50168) Diagnoses Ingrowing nail, right great toe L60.0 Cellulitis of great toe, right L03.031 Pain of right great toe M79.674 CPT Codes Skin Debridement - CPT: 11671 Partial/Total nail avulsion (1 nail) ([id number]) Time Spent (min) 75 Comment 25 mins for procedure
--- OUTSIDE RECORDS SUMMARY | 2025-09-05 14:36 | XMS_ITS | Clinical Summary ---
Author Organization [facility] Address [address] [address] Phone Care Team Providers Care Traveling Repair Accountant Name Role Phone Jose Moore MD Primary Care Provider [phone] Jose Moore MD Unavailable [phone] Harinder Damico MD Unavailable [phone] Juve Rosario MD Unavailable [phone] Earlene Saldana MD Unavailable Allergies No known active allergies Medications calcium citrate-vitamin D3 (CITRACAL+D) 315-200 mg-unit per tablet Take 1 tablet by mouth daily. Active cholecalciferol, vitamin D3, 1,000 unit capsule 1 capsule twice a week Active vitamins A,C,U-covx-qsctdx (PRESERVISION AREDS) 14,320-226-200 rrfx-wu-gfcs Cap Take 1 capsule by mouth 2 (two) times a day with meals. Active acetaminophen (TYLENOL) 325 mg tablet Take 325 mg by mouth 2 (two) times a day as needed. Active hydroCHLOROthiazide (HYDRODIURIL) 25 MG tabletIndications:Odiila n essential hypertension Take 1 tablet (25 mg total) by mouth daily. 90 tablet 5 09/08/20 23 Active phenylephrine-acetamino phen (TYLENOL SINUS HEADACHE) 5-325 mg Tab Take 1 tablet by mouth 2 (two) times a day as needed. Active metoprolol succinate (TOPROL-XL) 100 MG 24 hr tablet Take 100 mg by mouth daily. Managed by Dr. Rosario from [facility] Active irbesartan (AVAPRO) 150 MG tabletIndications:Essen tial (primary) hypertension Take 1 tablet (150 mg total) by mouth daily. 90 tablet 3 12/20/19 25 Active atorvastatin (LIPITOR) 10 MG tabletIndications:Pure hypercholesterolemia TAKE 1 TABLET BY MOUTH EVERY DAY 90 tablet 3 04/07/20 25 Active cephalexin (KEFLEX) 500 MG capsule Take 500 mg by mouth every 6 (six) hours. For 7 days 08/20/20 25 Active Active Problems Problem Noted Date [...] to PT. She will go to the [facility] named [facility] and set up her self. She can [...] to PT. She will go to the formerly named [facility] and set up her self. She can [...] holiday. Pure hypercholesterolemia 10/06/2017 Tobacco use 10/06/2017 Encounters Date Type Department Care Team Description 08/26/2025 11:00 AM EDT Office Visit [facility] Internal Medicine [address] [place] [address] Jose Moore MD Need for prophylactic vaccination and inoculation against influenza (Primary Dx); Benign essential hypertension; Cellulitis of toe of right foot; Ingrown toenail of right foot 08/23/2025 Telephone [facility] [address] [place] [address] Jose Moore MD Cellulitis from Last 3 Months Immunizations Immunization Administration Dates Next Due COVID-19 (Pre-09/01) Pfizer Vaccine, mRNA, PF 01/14/2021,12/24/2020 INFLUENZA, SPLIT VIRUS, TRIV ALENT W/ PRESERVATIVE IM 09/06/2014,08/25/2012 Influenza High-Dose Quadriva lent Preservative Free IM 09/08/2023,09/03/2022,08/29/2021,06/29 Influenza High-Dose Trivalen t Preservative Free IM 08/26/2025,08/27/2024,08/20/2019,08/07,10/06/2017,10/07/2016,10/18/2015 ,10/12/2013 Influenza Trivalent Adjuvant ed Preservative free IM [...] 5 cigarettes QD-noted 06/03/24, 4 cigarettes QD-noted 08/26/25 Alcohol Use Standard Drinks/Week Comments Yes 1 [...] Sign Reading Time Taken Comments Blood Pressure 174/76 08/26/2025 11:39 AM EDT Pulse 73 08/26/2025 11:01 AM EDT Temperature 36.2 C (97.1 F) 08/26/2025 11:01 AM EDT Respiratory Rate 12 03/17/2025 9:47 AM EDT Oxygen Saturation 99% 08/26/2025 11:01 AM EDT Inhaled Oxygen Concentration - - Weight 54.4 kg (120 lb) 08/26/2025 11:01 AM EDT Height 157 cm (5' 1.81 ) 08/26/2025 11:01 AM EDT Body Mass Index 22.08 08/26/2025 11:01 AM EDT Plan of Treatment Upcoming Encounters Date Type Department Care Team (Late st Contact Info) Description 09/19/2025 9:30 AM EST Office Visit [facility] Internal Medicine [address] [place] [address] Jose Moore MD [address] [place] [address] [email or web address] 01/23/2026 10:20 AM EDT Office Visit [facility] Endocrin[facility] [place] [address] [place] [phone] Earlene Saldana MD [address] [place] [phone] [email or web address] Health Maintenance Due Date Last Done Comments ZOSTER VACCINES (2 of 3) 02/15/2013 12/21/2012 RSV VACCINE (1 - 1-dose 75+ series) 2017 COVID-19 VACCINE (6 - season) 2025 11/15/2022, 02/11/2022, 08/08/2021, Additional history exists DEPRESSION SCREENING 09/14/2025 09/14/2024 CREATININE LEVEL 02/11/2026 02/11/2025, , 03/04/2024, Additional history exists POTASSIUM LEVEL 02/11/2026 02/11/2025, 02/09, 04/16/2023, Additional history exists BLOOD PRESSURE 02/24/2026 08/26/2025 FOLLOW UP BONE DENSITY TESTING 01/18/2027 01/18/2025, 10/13/2023, 10/03/2021, Additional history exists Adult Td,Tdap Booster 01/22/2035 01/22/2025, 011 PNEUMOCOCCAL VACCINES (50+ years) Completed 08/21/2020, 01/08/2010 OSTEOPOROSIS SCREENING INITIAL (ONE-TIME) Completed 01/18/2025, 10/13/2023, 10/03/2021, Additional history exists INFLUENZA VACCINE Completed 08/26/2025, , 08/27/2024, Additional history exists HEPATITIS A VACCINES Aged [...] - 5.0 mmol/L EXTERNAL NON-INTERFACED REF LAB Historical Provider MD LAB BLOOD ORDERABLES Evonne l Result Performing Organization Address City/[facility]/ZIP Co de Phone Number EXTERNAL NON-INTERFACED REF LAB * Outside Serum Creatinine Level (02/11/2025) Creatinine, serum - External 0.98 0.8 - 1.3 mg/dL EXTERNAL NON-INTERFACED REF LAB Historical Provider MD LAB BLOOD ORDERABLES Evonne l Result Performing Organization Address [facility] Co de Phone Number EXTERNAL NON-INTERFACED REF LAB * DXA Monitoring (10/13/2023 3:59 PM EST) Anatomical Region Laterality Modality Bone Density Bone Density Jose Moore MD IMG BD BONE DENSITY DEXA Evonne l Result from Last 3 Months or Most Recently Relevant to Health Maintenance Insurance MEDICARE PART A & B [facility] MEDICARE SUPPLEMENT MEDICARE PART A & B MEDICARE SUPPLEMENT MEDICARE PART A & B [facility] MEDICARE SUPPLEMENT MEDICARE PART A & B [facility] MEDICARE SUPPLEMENT MEDICARE PART A & B [facility] MEDICARE SUPPLEMENT MEDICARE PART A & B [facility] MEDICARE SUPPLEMENT MEDICARE PART A & B [employer] MEDICARE SUPPLEMENT MEDICARE PART A & B [employer] MEDICARE SUPPLEMENT MEDICARE PART A & B [facility] [employer] MEDICARE SUPPLEMENT Care Teams Traveling Repair Accountant Relationship Specialty Start Date End Date Jose Moore MD [address] [place] [address] [email or web address] PCP - General 08/28/17 Jose Moore MD [address] [place] [address] Insurance Assigned Provider 02/14/24 Harinder Damico MD [address] [place] [address] [email or web address] Hematology 08/21/20 Juve Rosario MD [address] [place] [address] Cardiology 08/21/20 Earlene Saldana MD [address] [place] [phone] [email or web address] Endocrinology 08/21/20 Additional Source Comments The information contained in this document represents components of the legal health record. It is not the complete legal health record.[facility]
--- OUTSIDE RECORDS SUMMARY | 2025-09-05 14:37 | XMS_ITS | Patient Health Record ---
Author Organization [facility] Address [address] [place] [address] Care Team Providers Care Access Lead Name Role Phone Jose Moore MD Primary Care Provider Carson Ha Unavailable [phone] Reason For Referral No Information Medications Medication SIG (Take, Route, Frequency, Duration) Notes Start Date End Date Status Vitamin D Active Citracal Plus Active hydroCHLOROthiazide 12.5mg Active Valsartan 160mg Acti ve Problems Problem Type SNOMED Code ICD Code Onset Dates Problem Status W/U Status Risk Notes Problem Onychomycosis (171345279) Onychomycosis (110.1) Active confirmed Problem Pain in limb (29455849) Pain in Limb (729.5) Active confirmed Problem Ingrowing nail (645244408) Ingrowing Nail (703.0) Active confirmed Plan Of Treatment Pending Test Test Name Order Date 32578-Iygxlmzp Plate 11/17/2013 77943- Debride <25 sq cm 12/02/2013 Insurance Providers Payer Name Payer Address Payer Phone Subscriber Number Group Number Insured Name Patient Relationship to Insured Coverage Start Date Coverage End Date Medicare [facility] [address] [facility] [address] [id number] Farnaz Jones Self - patient is the insured [employer] ([employer]) [address] [place] [address] [id number] Farnaz Jones Self - patient is the insured Medical (General) History Medical History History ICD Code Hypertension Chicken pox Measles Mumps Surgical History Surgery Date(Month/Year) cholecystectomy 1990
--- OUTSIDE RECORDS SUMMARY | 2025-09-05 14:37 | XMS_ITS | Encounter Summary ---
Author Organization [facility] Address [address] [facility] [address] [place] [address] Phone Care Team Providers Care Solid State Tester Name Role Phone Jose Moore MD Primary Care Provider [phone] Jose Moore MD Unavailable [phone] Harinder Damico MD Unavailable [phone] Juve Rosario MD Unavailable [phone] Earlene Saldana MD Unavailable Reason for Visit * Reason Onset Date Comments Cellulitis 08/23/2025 Encounter Details Date Type Department Care Team (Late st Contact Info) Description 08/23/2025 Telephone Causes [facility] Internal Medicine [address] [place], [place] [phone] Jose Moore MD [address] [place] [address] [email or web address] Cellulitis Social History Tobacco Use Types Packs/Day Years Used Date Smoking Tobacco: Every Day Cigarettes 0.3 112.8 Started: 1960 Smokeless Tobacco: Never Comments:smokes 4-5 cigarett es QD noted 03/02/24 Smokes 5 cigarettes QD-noted 06/03/24, 4 cigarettes QD-noted 03/17/25 Alcohol Use Standard Drinks/Week Comments Yes 1 (1 standard drink = 0.6 oz pure alcohol) 1 drink week only while out for dinner. Education Answer Date Recorded Are you interested in more education? Not on hloly e 03/07/2023 Are you concerned about learning? [...] Orientation Straight 03/21/2022 10 :33 PM EDT documented as of this encounter Progress Notes * Ignacio Martins - 08/23/2025 12:45 PM EDT Patient scheduled 08/25 at 2:30 * Ignacio Martins - 08/23/2025 9:20 AM EDT Patient called states she was seen at [facility] over the weekend diagnosed with cellulitis and put on Cefalexin. She states that swelling is down, redness is less. Leg is still sore. She states that [facility] referred her to Podiatry. She is wondering if she should see PCP first or go to Podiatry. She states she is still continuing to take the Cefalexin. Faxed to [facility] for records. documented in this encounter Plan of Treatment Upcoming Encounters Date Type Department Care Team (Late st Contact Info) Description 09/19/2025 9:30 AM EST Office Visit [facility] Internal Medicine [address] [place] [address] Jose Moore MD [address] [place] [address] [email or web address] 01/23/2026 10:20 AM EDT Office Visit [facility] Endocrinology [place] [address] [place] [phone] Earlene Saldana MD [address] [place] [phone] [email or web address] documented as of this encounter Visit Diagnoses Not on filedocumented in this encounter Additional Health Concerns Assessment Noted Time PHQ-2 Depression Total Score: 0 09/14/20 9:32 AM EST documented as of this encounter Care Teams Solid State Tester Relationship Specialty Start Date End Date Jose Moore MD [address] [place] [address] [email or web address] PCP - General 08/28/17 Jose Moore MD [address] [place] [address] [email or web address] Insurance Assigned Provider 02/14/24 Harinder Damico MD [address] [place] [phone] [email or web address] Hematology 08/21/20 Juve Rosario MD [address] [place] [address] Cardiology 08/21/20 Earlene Saldana MD [address] [place] [phone] [email or web address] Endocrinology 08/21/20 documented as of this encounter Additional Source Comments The information contained in this document represents components of the legal health record. It is not the complete legal health record.[facility]
== END 2025-09-05 15:32 | disposition home or self-care (01) ==
LOC: HO.HPODS 11:24
PROVIDERS: PCP Internal Medicine; Visit Provider Student in an Organized Health Care Education/Training Program
DX: L60.0 Ingrowing nail (principal); L03.031 Cellulitis of right toe; M79.674 Pain in right toe(s)
CPT/HCPCS: 99204

== ENCOUNTER → 2025-09-05 11:24 | Outpatient (BNVA) | payer MEDICARE, OTHER, SELFPAY | PROVIDERS: PCP Internal Medicine; Visit Provider Student in an Organized Health Care Education/Training Program | DX: L60.0 Ingrowing nail (principal); L03.031 Cellulitis of right toe; M79.674 Pain in right toe(s) | CPT/HCPCS: 11730; 99202; J2003 ==

== ENCOUNTER 2025-09-21 09:56 | Outpatient (AMB) | payer MEDICARE, OTHER, SELFPAY ==
--- OUTSIDE RECORDS SUMMARY | 2025-09-19 09:30 | XMS_ITS | Encounter Summary ---
Author Organization [facility] Address [address] [address] Phone Care Team Providers Care Electrician Maintenance Name Role Phone Jose Moore MD Primary Care Provider [phone] Jose Moore MD Unavailable [phone] Harinder Damico MD Unavailable [phone] Juve Rosario MD Unavailable [phone] Earlene Saldana MD Unavailable Reason for Visit * Reason Comments Medicare Annual Wellness Visit Jessicaen t Encounter Details Date Type Department Care Team (Latest Contact Info) Description 09/19/2025 9:30 AM EST Office Visit [facility] Internal Medicine [address] [place], [place] [phone] Jose Moore MD [address] [place] [address] [email or web address] Routine general medical examination at a health care facility (Primary Dx); Essential (primary) hypertension; Monoclonal gammopathy; Impaired fasting glucose; Pure hypercholesterolemia; Age-related osteoporosis without current pathological fracture Social History Tobacco Use Types Packs/Day Years Used Date Smoking Tobacco: Every Day Cigarettes 0.3 112.9 Started: 1960 Smokeless Tobacco: Never Comments:smokes 4-5 [...] ecorded Denied Basic Needs Not on file 09/19/2025 In the past 12 months have y ou been in a relationship with a person who hurts, threatens, or tries to control you? No 09/19/2025 Worried food would run out Not on file 09/19 In the past 12 months have y ou been in a relationship with a person who hurts, threatens, or tries to control you? No 09/19/2025 Comments No Sex and Gender Information Value Date Recorded Sex Assigned at Female 03/21/2022 10:33 PM EDT Legal Sex Female 10:11 PM EDT Gender Identity Female 03/21/2022 10:33 PM EDT Sexual Orientation Straight 03/21/2022 10 :33 PM EDT documented as of this encounter Last Filed Vital Signs Vital Sign Reading Time Taken Comments Blood Pressure 145/78 09/19/2025 9:53 AM EST Pulse 53 09/19/2025 9:00 AM EST Temperature 36.4 C (97.5 F) 09/19/2025 9:00 AM EST Respiratory Rate - - Oxygen Saturation 97% 09/19/2025 9:00 AM EST Inhaled Oxygen Concentration - - Weight 53.4 kg (117 lb 12.8 oz) 09/19/2025 9:00 AM EST Height 157 cm (5' 1.81 ) 09/19/2025 9:00 AM EST Body Mass Index 21.68 09/19/2025 9:00 AM EST documented in this encounter Progress Notes * Jose Moore MD - 09/19/2025 9:30 AM EST Subjective Farnaz Mcnulty is a 84 y.o. female. History of Present Illness Farnaz Mcnulty is an 84-year-old female who presents for follow-up of cellulitis and toenail removal. She was diagnosed with cellulitis in August 2025 and underwent partial toenail removal at [facility] due to an ingrown toenail causing infection in her big toe. The erythematous area hasnot expanded, and she applies mucicorin as directed. Her blood pressure is consistently around 130/62 at home, checked weekly, and does not exceed the 140s. She has no respiratory issues and has an upcoming cardiology appointment in November. She experiences sinus headaches occasionally, particularly with weather changes, and alleviates them by using a towel over her head and inhaling steam. She maintains a good appetite despite weight loss, which she attributes to walking four times a week for 45 minutes each session. Her current weight is 117 pounds, down from 125 pounds in 2022. No chest discomfort, dysphagia, falls, or additional foot issues apart from the toe problem. No abdominal pain, dysuria, or hematuria. She reports good sleep quality and wakes up feeling refreshed. She consumes alcohol once a week, specifically Jesús Mosotho whiskey on the [employer]. She has a history of osteoporosis without fractures and last had a bone density test two years ago. Current Outpatient Medications Ordered in [facility] Medication Sig acetaminophen (TYLENOL) 325 mg tablet Take 325 mg by mouth 2 (two) times a day as needed. atorvastatin (LIPITOR) 10 MG tablet TAKE 1 TABLET BY MOUTH EVERY DAY calcium citrate-vitamin D3 (CITRACAL+D) 315-200 mg-unit per tablet Take 1 tablet by mouth daily. cholecalciferol, vitamin D3, 1,000 unit capsule 1 capsule twice a week hydroCHLOROthiazide (HYDRODIURIL) 25 MG tablet Take 1 tablet (25 mg total) by mouth daily. irbesartan (AVAPRO) 150 MG tablet Take 1 tablet (150 mg total) by mouth daily. metoprolol succinate (TOPROL-XL) 100 MG 24 hr tablet Take 100 mg by mouth daily. Managed by Dr. Saxena [facility] Cardiology phenylephrine-acetaminophen (TYLENOL SINUS HEADACHE) 5-325 mg Tab Take 1 tablet by mouth 2 (two) times a day as needed. vitamins A,C,Q-ylsc-jkjwia (PRESERVISION AREDS) 14,320-226-200 kkpo-cz-dqmo Cap Take 1 capsule by mouth 2 (two) times a day with meals. Review of Systems Constitutional: Negative for unexpected weight change. HENT: Negative for changes in hearing. Eyes: Negative for unexpected vision change. Respiratory: Negative for cough and shortness of breath. Cardiovascular: Negative for chest pain and palpitations. Gastrointestinal: Negative for abdominal pain, blood in stool, constipation and diarrhea. Genitourinary: Negative for problems with urination, pain with intercourse and blood in urine. Neurological: Negative for dizziness and headaches. Skin: Negative for persistent rash and breast concerns. Musculoskeletal: Negative for joint pain. Objective Physical Exam BP (!) 145/78 (BP Location: Right arm, Patient Position: Sitting, Cuff Size: Medium) Pulse (!) 53 Temp 36.4 ??C (97.5 ??F) (Oral) Ht 157 cm (5' 1.81 ) Wt 53.4 kg (117 lb 12.8 oz) LMP (LMP Unknown) SpO2 97% BMI 21.68 kg/m?? CONSTITUTIONAL: Appears well- developed and well nourished. Cooperative, patient is alert. HEENT:PERRTL, EOM intact, fundi benign, TM's clear, throat clear. NECK: supple, no thyroid megaly, no adenopathy. LUNGS: clear to A&P,no wheezing/rhonichi/rales. HEART: RRR S1S2 without murmurs, rubs or gallops. ABDOMEN: bowel sounds: normal, soft non tender without masses. EXTREMITIES: without edema, clubbing or cyanosis. NEURO: Pt remembered 3/3 objects after 5 minutes. BREAST: WNL no masses or lymphadenopathy. Assessment & Plan Adult Wellness Visit Routine wellness visit with no significant health changes. Memory and cognitive function intact. Discussed RSV and COVID vaccinations for individuals over 75. - Ordered comprehensive blood work including CBC, hemoglobin A1c, lipids, and vitamin D levels. - Recommended RSV vaccine at pharmacy. - Discussed COVID vaccination; recommended for individuals over 75. - Encouraged discussion of advance directives and life-saving measures. Essential hypertension Blood pressure well-controlled at home, averaging 130/62 mmHg. - Continue current antihypertensive regimen. Cellulitis of right great toe, resolving Cellulitis resolving with no increase in redness or size. Impaired fasting glucose No recent blood glucose levels discussed. - Ordered comprehensive blood work including hemoglobin A1c. Pure hypercholesterolemia Cholesterol levels previously reported as good. - Ordered lipid panel as part of comprehensive blood work. Age-related osteoporosis without current pathological fracture No recent fractures reported. Bone density scan due. - Ordered bone density scan. I obtained verbal consent from the patient or their proxy to record this visit for purposes of producing a draft of the encounter documentation. documented in this encounter Plan of Treatment Upcoming Encounters Date Type Department Care Team (Late st Contact Info) Description 01/23/2026 10:20 AM EDT Office Visit [facility] Endocrinology [place] [address] [place] [address] Earlene Saldana MD [address] [place] [phone] 03/17/2026 10:00 AM EDT Office Visit [facility] Internal Medicine [address] [place] [address] Jose Moore MD [address] [place] [address] Scheduled Orders Name Type Priority Associated Diagnoses Orde r Schedule Comprehensive Metabolic Panel (CMP) Lab Routine Essential (primary) hypertension Monoclonal gammopathy Impaired fasting glucose Pure hypercholesterolemia Expected: 09/19/2025, Expires: 09/19/2026 CBC and Differential Lab Routine Essential (primary) hypertension Monoclonal gammopathy Expected: 09/19/2025, Expires: 09/19/2026 Hemoglobin A1c Lab Routine Impaired fasting glucose Expected: 09/19/2025, Expires: 09/19/2026 Lipid Panel Lab Routine Pure hypercholesterolemia Expected: 09/19/2025, Expires: 09/19/2026 25-OH Vitamin D Lab Routine Age-related osteoporosis without current pathological fracture Expected: 09/19/2025, Expires: 09/19/2026 documented as of this encounter Visit Diagnoses Diagnosis Routine general medical examination at a health care facility- Primary Essential (primary) hypertension Unspecified essential hypertension Monoclonal gammopathy Monoclonal paraproteinemia Impaired fasting glucose Pure hypercholesterolemia Age-related osteoporosis without current pathological fracture documented in this encounter Additional Health Concerns Assessment Noted Time PHQ-2 Depression Total Score: 0 09/19/20 25 8:49 AM EST documented as of this encounter Care Teams Electrician Maintenance Relationship Specialty Start Date End Date Jose Moore MD [address] [place] [address] PCP - General 08/28/17 Jose Moore MD [address] [place] [address] Insurance Assigned Provider 02/14/24 Harinder Damico MD [address] [place] [address] [email or web address] 08/21/20 Juve Rosario MD [address] [place] [phone] Cardiology 08/21/20 Earlene Saldana MD [address] [place] [address] [email or web address] Endocrinology 08/21/20 documented as of this encounter Additional Source Comments The information contained in this document represents components of the legal health record. It is not the complete legal health record.[facility]
--- NOTE | 2025-09-21 10:11 | MHC.OFFVIS ---
Vital Signs 09/21/25 10:11 Height 5 ft 4 in Intake Visit Reasons: f/u right hallux PNA Intake Note: Farnaz is an 84 year old female who presents today for a follow up on her right hallux partial nail avulsion. During her last visit a nail avulsion was performed and she was advised of post procedure care. Recommendations to avoid walking barefoot and to utilize supportive shoe gear and wide toe-box shoes were made Pt states she is doing well with no further concerns at this time. Allergies No Known Allergies (No Known Allergies*) Allergy (Verified 09/05/25 11:32) HPI Comments Details: The patient is an 84-year-old female presenting for a follow up S/P right hallux lateral border PNA. She states she adhered to the aftercare instruction. She denies any purulence, drainage, or bleeding from the site. She denies any current pain to the right hallux. The patient noted some dryness of the skin, which was attributed to the soaking process. She denies any other pedal concerns. [facility] Medical History (Updated 09/05/25 @ 11:41 by Susana Salomon DPM) Cellulitis of great toe, right Pain of right great toe Ingrowing nail, right great toe Cardiomyopathy High cholesterol HTN (hypertension) Social History Alcohol intake: current Alcohol intake frequency: 0-2 drinks per day Alcohol type: hard liquor Review of Systems Const Details: - Musculoskeletal: S/P Right hallux PNA lateral border. All systems reviewed & are unremarkable except as noted in HPI and below Physical Exam Extrem Other: Right lower extremity focused physical exam: Derm: PNA site to the lateral border of the hallux noted to be healed with Minimal edema. No active bleeding, drainage, purulence noted. Remaining toenails within normal limits. No maceration noted. Skin supple and turgor within normal limits. No ecchymosis noted. Vasc: DP pulses palpable. PT pulses mildly palpable. CFT < 3 secs. Temp gradient warm to warm. Varicosities noted. Neuro: Protective sensations grossly intact. MSK: No Pain on palpation to right hallux along lateral nail border. No fluctuance or crepitus noted. ROM of the forefoot, hindfoot, and ankle WNL. Nonantalgic gait unassisted noted. Assessment & Plan Assessment & Plan (1) Ingrowing nail, right great toe: Code(s): L60.0 - Ingrowing nail Category: Medical (2) Cellulitis of great toe, right: Code(s): L03.031 - Cellulitis of right toe Category: Medical (3) Pain of right great toe: Code(s): M79.674 - Pain in right toe(s) Category: Medical Plan Patient was informed and verbally consented to the use of an ambient scribe for clinic note documentation during this visit. I discussed with the patient the healed status of her right hallux lateral border PNA site, noting the absence of pain and infection. I advised her to monitor the toenail for any signs of recurrence and to resume soaking if necessary. We also discussed the possibility of using a chemical treatment if the condition becomes recurrent. - Discontinue soaking the foot in Epsom salt and warm water unless signs of irritation recur. No longer need to apply Neosporin and a bandaid to the site. - Monitor the toenail for signs of curving or pain, and resume soaking if necessary. - Consider chemical treatment if the ingrown toenail recurs persistently. - Patient is to avoid barefoot walking and is to wear supportive shoe gear. - Advised patient to wear shoes with a wide-toebox and avoid tight fitting shoes. RTC PRN. Coding Level of Care Code Est Pt Level 3 (47330) Diagnoses Ingrowing nail, right great toe L60.0 Cellulitis of great toe, right L03.031 Pain of right great toe M79.674 Time Spent (min) 20
--- OUTSIDE RECORDS SUMMARY | 2025-09-21 11:37 | XMS_ITS | Clinical Summary ---
Author Organization [facility] Address [address] [address] Phone Care Team Providers Care Telesales Specialist Name Role Phone Jose Moore MD Primary Care Provider Jose Moore MD Unavailable [phone] Harinder Damico MD Unavailable [phone] Juve Rosario MD Unavailable Earlene Saldana MD Unavailable Allergies No known active allergies Medications calcium citrate-vitamin D3 (CITRACAL+D) 315-200 mg-unit per tablet Take 1 tablet by mouth daily. Active cholecalciferol, vitamin D3, 1,000 unit capsule 1 capsule twice a week Active vitamins A,C,K-syqe-juqzis (PRESERVISION AREDS) 14,320-226-200 dpye-aa-ulyb Cap Take 1 capsule by mouth 2 (two) times a day with meals. Active acetaminophen (TYLENOL) 325 mg tablet Take 325 mg by mouth 2 (two) times a day as needed. Active hydroCHLOROthiazide (HYDRODIURIL) 25 MG tabletIndications:Bencecelia n essential hypertension Take 1 tablet (25 mg total) by mouth daily. 90 tablet 5 023 Active phenylephrine-acetamino phen (TYLENOL SINUS HEADACHE) 5-325 mg Tab Take 1 tablet by mouth 2 (two) times a day as needed. Active metoprolol succinate (TOPROL-XL) 100 MG 24 hr tablet Take 100 mg by mouth daily. Managed by Dr. Rosario from [facility] Cardiology Active irbesartan (AVAPRO) 150 MG tabletIndications:Essen tial (primary) hypertension Take 1 tablet (150 mg total) by mouth daily. 90 tablet 3 025 Active atorvastatin (LIPITOR) 10 MG tabletIndications:Pure hypercholesterolemia TAKE 1 TABLET BY MOUTH EVERY DAY 90 tablet 3 025 Active cephalexin (KEFLEX) 500 MG capsule Take 500 mg by mouth every 6 (six) hours. For 7 days 025 2024 Disconti nued(No longer taking) Active Problems Problem Noted Date Diagnosed Date [...] to PT. She will go to the [facility] and set up her self. She can [...] to PT. She will go to the [facility] and set up her self. She can [...] Encounters Date Type Department Care Team Description 09/19/2025 9:30 AM EST Office Visit [facility] [address] [facility] [place] [address] Jose Moore MD Routine general medical examination at a health care facility (Primary Dx); Essential (primary) hypertension; Monoclonal gammopathy; Impaired fasting glucose; Pure hypercholesterolemia; Age-related osteoporosis without current pathological fracture 08/26/2025 11:00 AM EDT Office Visit [facility] [address] [facility] [place] [address] Jose Moore MD Need for prophylactic vaccination and inoculation against influenza (Primary Dx); Benign essential hypertension; Cellulitis of toe of right foot; Ingrown toenail of right foot 08/23/2025 Telephone [facility] [place] [facility] [address] [place] [address] Jose Moore MD Cellulitis from Last 3 [...] 0.3 112.9 Started: 1960 Smokeless Tobacco: Never Tobacco Cessation:Ready [...] F) 09/19/2025 9:00 AM EST Respiratory Rate 12 03/17/2025 9:47 AM EDT Oxygen Saturation 97% 09/19/2025 9:00 AM EST Inhaled Oxygen Concentration - - Weight 53.4 kg (117 lb 12.8 oz) 09/19/2025 9:00 AM EST Height 157 cm (5' 1.81 ) 09/19/2025 9:00 AM EST Body Mass Index 21.68 09/19/2025 9:00 AM EST Plan of Treatment Upcoming Encounters Date Type Department Care Team (Late st Contact Info) Description 01/23/2026 10:20 AM EDT Office Visit [facility] Endocrinology [address] [phone] Earlene Saldana MD [address] [place] [phone] [email or web address] 03/17/2026 10:00 AM EDT Office Visit [facility] [address] [place] [address] Jose Moore MD [address] [place] [address] [email or web address] Health Maintenance Due Date Last Done Comments ZOSTER VACCINES (2 of 3) 02/15/2013 12/21/2012 RSV VACCINE (1 - 1-dose 75+ series) 2017 COVID-19 VACCINE ( season) 2025 11/15/2022, 02/11/2022, 08/08/2021, Additional history exists CREATININE LEVEL 02/11/2026 02/11/2025, , 03/04/2024, Additional history exists POTASSIUM LEVEL 02/11/2026 02/11/2025, 02/09, 04/16/2023, Additional history exists BLOOD PRESSURE 03/19/2026 09/19/2025 DEPRESSION SCREENING 09/19/2026 09/19/2025 FOLLOW UP BONE DENSITY TESTING 01/18/2027 01/18/2025, [...] on patient's age to complete this topic IPV VACCINES Aged Out No longer eligi ble [...] ORDERABLES Evonne l Result Performing Organization Address [facility] de Phone Number EXTERNAL NON-INTERFACED REF LAB * Outside Serum Creatinine Level (02/11/2025) Creatinine, serum - External 0.98 0.8 - 1.3 mg/dL EXTERNAL NON-INTERFACED REF LAB Historical Provider MD LAB BLOOD ORDERABLES Evonne l Result Performing Organization Address [facility] de Phone Number EXTERNAL NON-INTERFACED REF LAB * DXA Monitoring (10/13/2023 3:59 PM EST) Anatomical Region Laterality Modality Bone Density Bone Density Jose Moore MD IMG BD BONE DENSITY DEXA Evonne l Result from Last 3 Months or Most Recently Relevant to Health Maintenance Insurance MEDICARE PART A & B [facility] MEDICARE SUPPLEMENT MEDICARE PART A & B [facility] MEDICARE SUPPLEMENT MEDICARE PART A & B [employer] MEDICARE SUPPLEMENT MEDICARE PART A & B [employer] MEDICARE SUPPLEMENT MEDICARE PART A & B [employer] MED[employer]ARE SUPPLEMENT MEDICARE PART A & B [employer] MEDICARE SUPPLEMENT MEDICARE PART A & B [facility] [employer] MEDICARE SUPPLEMENT MEDICARE PART A & B [facility] [employer] MEDICARE SUPPLEMENT MEDICARE PART A & B [facility] [employer] MEDICARE SUPPLEMENT Care Teams Telesales Specialist Relationship Specialty Start Date End Date Jose Moore MD [address] [place] [address] [email or web address] PCP - General 08/28/17 Jose Moore MD [address] [place] [address] [email or web address] Insurance Assigned Provider 02/14/24 Harinder Damico MD [address] [place] [address] [email or web address] 08/21/20 Juve Rosario MD [address] [place] [address] Cardiology 08/21/20 Earlene Saldana MD [address] [place] [address] [email or web address] Endocrinology 08/21/20 Additional Source Comments The information contained in this document represents components of the legal health record. It is not the complete legal health record.[facility]
--- OUTSIDE RECORDS SUMMARY | 2025-09-21 11:37 | XMS_ITS | Encounter Summary ---
Author Organization [facility] Address [address] [facility] [address] [place] [address] Phone Care Team Providers Care Casino Shift Manager Name Role Phone Jose Moore MD Primary Care Provider [phone] Jose Moore MD Unavailable [phone] Harinder Damico MD Unavailable [phone] Juve Rosario MD Unavailable [phone] Earlene Saldana MD Unavailable Reason for Visit * Reason Onset Date Comments Cellulitis 08/23/2025 Encounter Details Date Type Department Care Team (Late st Contact Info) Description 08/23/2025 Telephone [facility] Internal Medicine [address] [place], [place] [phone] Jose Moore MD [address] [place] [address] [email or web address] Cellulitis Social History Tobacco Use Types Packs/Day [...] Patient called states she was seen at [facility] over the weekend diagnosed with cellulitis and put on Cefalexin. She states that swelling is down, redness is less. Leg is still sore. She states that [facility] referred her to Podiatry. She is wondering if she should see PCP first or go to Podiatry. She states she is still continuing to take the Cefalexin. Faxed to [facility] for records. documented in this encounter Plan of Treatment Upcoming Encounters Date Type Department Care Team (Late st Contact Info) Description 01/23/2026 10:20 AM EDT Office Visit [facility] Endocrinology [place] [address] [place] [phone] Earlene Saldana MD [address] [place] [phone] 03/17/2026 10:00 AM EDT Office Visit [facility] Internal Medicine [address] [place] [address] Jose Moore MD [address] [place] [address] [email or web address] documented as of this encounter Visit Diagnoses Not on filedocumented in this encounter Additional Health Concerns Assessment Noted Time PHQ-2 Depression Total Score: 0 09/14/20 9:32 AM EST documented as of this encounter Care Teams Casino Shift Manager Relationship Specialty Start Date End Date Jose Moore MD [address] [place], [place] PCP - General 08/28/17 Jose Moore MD [address] [place] [address] [email or web address] Insurance Assigned Provider 02/14/24 Harinder Damico MD [address] [place] [phone] [email or web address] Hematology 08/21/20 Juve Rosario MD [address] [place] [address] Cardiology 08/21/20 Earlene Saldana MD [address] [place] [address] [email or web address] Endocrinology 08/21/20 documented as of this encounter Additional Source Comments The information contained in this document represents components of the legal health record. It is not the complete legal health record.[facility]
--- OUTSIDE RECORDS SUMMARY | 2025-09-21 11:37 | XMS_ITS | Patient Health Record ---
Author Organization [facility] Address [address] [place] [address] Care Team Providers Care Reliability Technician Name Role Phone Jose Moore MD Primary Care Provider Carson Ha Unavailable [phone] Reason For Referral No Information Medications Medication SIG (Take, Route, Frequency, Duration) Notes Start Date End Date Status Vitamin D Active Citracal Plus Active hydroCHLOROthiazide 12.5mg Active Valsartan 160mg Acti ve Problems Problem Type SNOMED Code ICD Code Onset Dates Problem Status W/U Status Risk Notes Problem Onychomycosis (388258134) Onychomycosis (110.1) Active confirmed Problem Pain in limb (80024973) Pain in Limb (729.5) Active confirmed Problem Ingrowing nail (410663429) Ingrowing Nail (703.0) Active confirmed Plan Of Treatment Pending Test Test Name Order Date [id number] Plate 11/17/2013 62231- Debride <25 sq cm 12/02/2013 Insurance Providers Payer Name Payer Address Payer Phone Subscriber Number Group Number Insured Name Patient Relationship to Insured Coverage Start Date Coverage End Date Medicare [facility] [address] [place] [address] [id number] Farnaz Jones Self - patient is the insured [employer] ([employer]) [address] [place] [address] [phone] [id number] Farnaz Jones Self - patient is the insured Medical (General) History Medical History History ICD Code Hypertension Chicken pox Measles Mumps Surgical History Surgery Date(Month/Year) cholecystectomy 1990
== END 2025-09-21 10:40 | disposition home or self-care (01) ==
LOC: HO.HPODS 09:57
PROVIDERS: PCP Internal Medicine; Visit Provider Student in an Organized Health Care Education/Training Program
DX: L60.0 Ingrowing nail (principal); L03.031 Cellulitis of right toe; M79.674 Pain in right toe(s)
CPT/HCPCS: 99213

== ENCOUNTER → 2025-09-21 09:56 | Outpatient (BNVA) | payer MEDICARE, OTHER, SELFPAY | PROVIDERS: PCP Internal Medicine; Visit Provider Student in an Organized Health Care Education/Training Program | DX: L60.0 Ingrowing nail (principal); L03.031 Cellulitis of right toe | CPT/HCPCS: 99212 ==

== ENCOUNTER 2025-09-24 07:10 | Outpatient (REF) | payer MEDICARE, OTHER, SELFPAY ==
--- OUTSIDE RECORDS SUMMARY | 2025-09-19 09:30 | XMS_ITS | Encounter Summary ---
Author Organization [facility] Address [address] [address] Phone Care Team Providers Care Position Classification Manager Name Role Phone Jose Moore MD Primary Care Provider [phone] Jose Moore MD Unavailable [phone] Harinder Damico MD Unavailable [phone] Juve Rosario MD Unavailable [phone] Earlene Saldana MD Unavailable Reason for Visit * Reason Comments Medicare Annual Wellness Visit Jessicaen t Encounter Details Date Type Department Care Team (Latest Contact Info) Description 09/19/2025 9:30 AM EST Office Visit [facility] Internal Medicine [address] [place], [place] [phone] Jose Moore MD [address] [place] [address] [email or web address] Routine general medical examination at a health care facility (Primary Dx); Essential (primary) hypertension; Monoclonal gammopathy; Impaired fasting glucose; Pure hypercholesterolemia; Age-related osteoporosis without current pathological fracture Social History Tobacco Use Types Packs/Day Years Used Date Smoking Tobacco: Every Day Cigarettes 0.2 112.9 Started: 1960 Smokeless Tobacco: Never Comments:smokes [...] 2025 and underwent partial toenail removal at [facility] due to an ingrown toenail causing infection [...] consumes alcohol once a week, specifically Jesús [place] whiskey on the [email or web address]. She has a history of osteoporosis without fractures and last had a bone density test two years ago. Current Outpatient Medications Ordered in [facility] Medication Sig acetaminophen (TYLENOL) 325 mg tablet [...] by mouth daily. Managed by [facility] Saxena [facility] phenylephrine-acetaminophen (TYLENOL SINUS HEADACHE) 5-325 mg Tab Take 1 tablet by mouth 2 (two) times a day as needed. vitamins A,C,H-mvcx-jnyjuv (PRESERVISION AREDS) 14,320-226-200 reha-qs-dpuq Cap Take 1 capsule by mouth 2 [...] Description 01/23/2026 10:20 AM EDT Office Visit [facility] Endocrinology [place] [address] [place] [address] Earlene Saldana MD [address] [place] [phone] 03/17/2026 10:00 AM EDT Office Visit [facility] Internal Medicine [address] [place] [address] Jose Moore MD [address] [place] [address] Scheduled Orders Name Type Priority Associated Diagnoses [...] documented as of this encounter Care Teams Position Classification Manager Relationship Specialty Start Date End Date Jose Moore MD [address] [place] [address] PCP - General 08/28/17 Jose Moore MD [address] [place] [address] Insurance Assigned Provider 02/14/24 Harinder Damico MD [address] [place] [address] [email or web address] Hematology 08/21/20 Juve Rosario MD [address] [place] [phone] Cardiology 08/21/20 Earlene Saldana MD [address] [place] [address] [email or web address] Endocrinology 08/21/20 documented as of this encounter Additional Source Comments The information contained in this document represents components of the legal health record. It is not the complete legal health record.[facility]
--- OUTSIDE RECORDS SUMMARY | 2025-09-24 07:15 | XMS_ITS | Encounter Summary ---
Author Organization [facility] Address [address] [facility] [place] [address] [place] [address] Phone Care Team Providers Care Ell Teacher Name Role Phone Jose Moore MD Primary Care Provider [phone] Jose Moore MD Unavailable [phone] Harinder Daimco MD Unavailable [phone] Juve Rosario MD Unavailable [phone] Earlene Saldana MD Unavailable Reason for Visit * Reason Onset Date Comments Cellulitis 08/23/2025 Encounter Details Date Type Department Care Team (Late st Contact Info) Description 08/23/2025 Telephone [facility] Internal Medicine [address] [place], [place] [phone] Jose Moore MD [address] [place] [address] [email or web address] Cellulitis Social History Tobacco Use Types Packs/Day [...] Patient called states she was seen [place] [facility] [place] diagnosed with cellulitis and put on Cefalexin. She states that swelling is down, redness is less. Leg is still sore. She states that [facility] [place] her to Podiatry. She is wondering if she should see PCP first or go to Podiatry. She states she is still continuing to take the Cefalexin. Faxed to [facility] [place]. documented in this encounter Plan of Treatment Upcoming Encounters Date Type Department Care Team (Late st Contact Info) Description 01/23/2026 10:20 AM EDT Office Visit [facility] Endocrinology [place] [address] [place] [phone] Earlene Saldana MD [address] [place] [phone] 03/17/2026 10:00 AM EDT Office Visit [facility] Internal Medicine [address] [place] [address] Jose Moore MD [address] [place] [address] [email or web address] documented as of this encounter Visit Diagnoses Not on filedocumented in this encounter Additional Health Concerns Assessment Noted Time PHQ-2 Depression Total Score: 0 09/14/20 9:32 AM EST documented as of this encounter Care Teams Ell Teacher Relationship Specialty Start Date End Date Jose Moore MD [address] [place], [place] PCP - General 08/28/17 Jose Moore MD [address] [place] [phone] [email or web address] Insurance Assigned Provider 02/14/24 Harinder Damico MD [address] [place] [phone] [email or web address] Hematology 08/21/20 Juve Rosario MD [address] [place] [phone] Cardiology 08/21/20 Earlene Saldana MD [address] [place] [address] [email or web address] Endocrinology 08/21/20 documented as of this encounter Additional Source Comments The information contained in this document represents components of the legal health record. It is not the complete legal health record.[facility]
--- OUTSIDE RECORDS SUMMARY | 2025-09-24 07:17 | XMS_ITS | Patient Health Record ---
Author Organization [facility] Address [address] [place] [address] Care Team Providers Care Opticianry Teacher Name Role Phone Jose Moore MD Primary Care Provider Carson Ha Unavailable [phone] Reason For Referral No Information Medications Medication SIG (Take, Route, Frequency, Duration) Notes Start Date End Date Status Vitamin D Active Citracal Plus Active hydroCHLOROthiazide 12.5mg Active Valsartan 160mg Acti ve Problems Problem Type SNOMED Code ICD Code Onset Dates Problem Status W/U Status Risk Notes Problem Onychomycosis (616620042) Onychomycosis (110.1) Active confirmed Problem Pain in limb (77676161) Pain in Limb (729.5) Active confirmed Problem Ingrowing nail (535934646) Ingrowing Nail (703.0) Active confirmed Plan Of Treatment Pending Test Test Name Order Date [id number] Plate 11/17/2013 54665- Debride <25 sq cm 12/02/2013 Insurance Providers Payer Name Payer Address Payer Phone Subscriber Number Group Number Insured Name Patient Relationship to Insured Coverage Start Date Coverage End Date Medicare [facility] [address] [place] [address] [id number] Farnaz Jones Self - patient is the insured [employer] ([employer]) [address] [place] [address] [id number] Farnaz Jones Self - patient is the insured Medical (General) History Medical History History ICD Code Hypertension Chicken pox Measles Mumps Surgical History Surgery Date(Month/Year) cholecystectomy 1990
[2025-09-24 07:25] LABS: MANUAL DIFF FLAG NO
[2025-09-24 07:40] LABS: Hematocrit 41.4 % (37.0-47.0); Hemoglobin 13.3 g/dl (12.0-16.0); Imm Gran Abs Auto 0.03 X10*3/uL (0.00-0.03); Imm Gran Pct Auto 0.4 % (0.0-0.4); Lymphocytes Absolute Auto 1.4 X10*3/uL (1.2-4.9); Mean Corpuscular HGB Conc 32.1 g/dl (31.0-35.0); Mean Corpuscular Hemoglobin 31.1 pg (27.0-33.0); Mean Corpuscular Volume 96.7 fL (80.0-98.0); NRBC Abs Auto 0.000 X10*3/uL (0.0-0.012); NRBC Pct Auto 0.0 /100WBC (0.0-0.2); Platelet Count 238 X10*3/uL (160-400); Red Blood Count 4.28 X10*6/uL (4.20-5.50); White Blood Count 8.3 X10*3/uL (4.8-10.8)
[2025-09-24 08:08] LABS: Alanine Aminotransferase 24 U/L (0-31); Albumin Level 4.4 g/dL (3.5-5.0); Alkaline Phosphatase 143 U/L (39-117); Anion Gap 14 (12-20); Aspartate Amino Transferase 31 U/L (5-31); Blood Urea Nitrogen 26 mg/dL (9-16); Calcium 10.2 mg/dL (8.4-10.2); Carbon Dioxide 28 mmol/L (22-29); Chloride 104 mmol/L (96-108); Cholesterol 149 mg/dL (<200); Estimated Glomerular Filt Rate 48; HDL Cholesterol 49 mg/dL (>40); Potassium 4.1 mmol/L (3.3-5.1); Sodium 142 mmol/L (135-145); Total Protein 7.3 g/dL (6.5-8.0); Triglycerides 102 mg/dL (<150)
== END 2025-09-24 07:11 | disposition home or self-care (01) ==
LOC: HO.LAB 07:10
PROVIDERS: PCP Internal Medicine; Visit Provider Internal Medicine
DX: I10 Essential (primary) hypertension (principal); M81.0 Age-related osteoporosis without current pathological fracture; D47.2 Monoclonal gammopathy; E78.00 Pure hypercholesterolemia, unspecified; R73.01 Impaired fasting glucose
CPT/HCPCS: 36415; 80053; 80061; 82306; 83036; 85025